=== PATIENT | female | born 1940 | race Caucasian/White ===

== ENCOUNTER 2017-04-13 05:16 | Day surgery (SDC) | payer OTHER, BC ==
[~2017-04-13] VITALS: Ht 177.8 cm; Wt 77.1 kg
[~2017-04-13 05:16] MED LIST: ADVAIR 500/501 DISK IH; ADVIL200 MG PO; BENTYL10 MG PO; ELIQUIS5 MG PO; FLONASE16 G1 BOTH NARES; HYDROCHLOROTHIA50 MG PO; LOPRESSOR50 MG PO; MICRO-K10 ME2 PO; SPIRIVA1 INHALATI IH; TYLENOL ARTHRI650 MG PO; VENTOLIN HFA18 GM IH; WELCHOL625 MG PO
[2017-04-13 06:13] VITALS: BP 168/88
[2017-04-13 06:23] LABS: INTER. NORMALIZED RATIO 1.1; PROTHROMBIN TIME 11.8 SEC (10.2-12.9)
[2017-04-13 06:26] LABS: PTT 32.8 SEC (25-37)
[2017-04-13] MEDS ORDERED: HYDROCODON-ACE1 EAC7 PO (11:38)
[2017-04-13 12:35] VITALS: BP 142/78
[2017-04-13 13:44] VITALS: BP 150/70
[2017-04-13 14:16] VITALS: BP 176/87
== END 2017-04-13 14:25 | disposition home or self-care (01) ==
LOC: SDC 05:16
PROVIDERS: Surgery
DX: C50.412 Malignant neoplasm of upper-outer quadrant of left female breast (principal); Z17.0 Estrogen receptor positive status [ER+]; I48.91 Unspecified atrial fibrillation; I10 Essential (primary) hypertension; I73.9 Peripheral vascular disease, unspecified; J43.9 Emphysema, unspecified; Z87.891 Personal history of nicotine dependence; Z79.01 Long term (current) use of anticoagulants; Z85.820 Personal history of malignant melanoma of skin
CPT/HCPCS: 78195; 78999; 85610; 85730; 88305; 88307; A9541; J0131; J0690; J1100; J1170; J2250; J2405; J3010; J7120; S0020

== ENCOUNTER 2017-08-18 11:04 | Inpatient (IN) | payer OTHER, BC ==
[~2017-08-18] VITALS: Ht 177.8 cm; Wt 91.4 kg
[~2017-08-18 11:04] MED LIST changes: +HYDROCODON-ACE1 EAC7 PO; -MICRO-K10 ME2 PO; +MICRO-K8 ME2 PO
[2017-08-18 12:24] LABS: PLATELET COUNT 348 K/uL (156-360)
[2017-08-18 12:28] LABS: HEMATOCRIT 31.2 % (36.0-46.0); HEMOGLOBIN 10.7 G/DL (11.9-15.5); MCH 26.7 PG (29.0-34.0); MCHC 34.3 G/DL (30.0-36.0); MCV 77.8 FL (83-99); RBC DIS.WIDTH-CV 15.1 % (11.8-14.6); RBC DIS.WIDTH-SD 42.6 % (39-53); RED BLOOD COUNT 4.01 M/uL (3.80-5.20)
[2017-08-18 12:36] LABS: PTT 29.4 SEC (25-37)
[2017-08-18 12:38] LABS: CHLORIDE 88 mEq/L (99-109); INTER. NORMALIZED RATIO 2.6; SODIUM 122 mEq/L (136-147)
[2017-08-18 12:39] LABS: GLUCOSE 96 mg/dL (70-99)
[2017-08-18 12:43] LABS: CREATININE 1.4 mg/dL (0.6-1.3); GFR ESTIMATE (CALCULATED) 39 mL/min/
[2017-08-18 12:44] LABS: UREA NITROGEN (BUN) 50 mg/dL (9-23); WHITE BLOOD COUNT 34.3 K/uL (4.1-10.2)
[2017-08-18 12:45] LABS: TROP-I INTERPRETATION NEGATIVE; TROPONIN-I < 0.01 ng/mL (0.0-0.30)
[2017-08-18 13:06] LABS: ABS NEUTROPHIL COUNT 33.4; BAND NEUTROPHILS 3.5 % (0-8.0); EOSINOPHIL ABS CT 0.1; EOSINOPHILS 0.4 % (0-5.0); LYMPHOCYTES 0.9 % (15.0-45.0); MONOCYTES 1.3 % (0-9.0); PLAT.SUFFICIENCY ADEQUATE; SEG.NEUTROPHILS 93.9 % (46.0-76.0); SMUDGE CELLS 0.9
[2017-08-18] MEDS ORDERED: PROVENTIL,2.5 MG/3 M IH (15:04)
[2017-08-18] MEDS ORDERED: ZYRTEC10 M3 PO (15:08)
[2017-08-18] MEDS ORDERED: ANASTROZOLE1 MG PO (15:08)
[2017-08-18 20:27] VITALS: BP 122/58
[2017-08-18 22:22] LABS: HEMATOCRIT 28.5 % (36.0-46.0); HEMOGLOBIN 9.5 G/DL (11.9-15.5); MCH 25.7 PG (29.0-34.0); MCHC 33.3 G/DL (30.0-36.0); MCV 77.2 FL (83-99); PLATELET COUNT 346 K/uL (156-360); RBC DIS.WIDTH-CV 15.1 % (11.8-14.6); RED BLOOD COUNT 3.69 M/uL (3.80-5.20); WHITE BLOOD COUNT 27.4 K/uL (4.1-10.2)
[2017-08-18 22:46] LABS: CHLORIDE 91 MEQ/L (99-109); CREATININE 1.4 MG/DL (0.6-1.3); GFR ESTIMATE (CALCULATED) 39 mL/min/; GLUCOSE 93 mg/dL (70-99); POTASSIUM 3.3 MEQ/L (3.7-5.4); SODIUM 122 MEQ/L (136-147); UREA NITROGEN (BUN) 54 mg/dL (9-23)
[2017-08-18 23:02] LABS: ABS NEUTROPHIL COUNT 27.2; BAND NEUTROPHILS 18.8 % (0-8.0); BURR CELLS 3+; EOSINOPHIL ABS CT 0; MONOCYTES 0.9 % (0-9.0); OVALOCYTES 1+; PLAT.SUFFICIENCY ADEQUATE; POIKILOCYTOSIS 2+; SEG.NEUTROPHILS 80.3 % (46.0-76.0)
[2017-08-19] VITALS (11 sets, daily range): BP systolic 92–140; BP diastolic 48–74
[2017-08-19 03:17] LABS: C DIFF TOXIN POSITIVE (NEGATIVE)
[2017-08-19 06:17] LABS: INTER. NORMALIZED RATIO 2.4
[2017-08-19 06:19] LABS: PTT 29.4 SEC (25-37)
[2017-08-19 06:25] LABS: CHLORIDE 93 MEQ/L (99-109); CREATININE 1.4 MG/DL (0.6-1.3); GFR ESTIMATE (CALCULATED) 39 mL/min/; GLUCOSE 114 mg/dL (70-99); POTASSIUM 3.5 MEQ/L (3.7-5.4); SODIUM 125 MEQ/L (136-147); UREA NITROGEN (BUN) 54 mg/dL (9-23)
[2017-08-19 06:41] LABS: IRON 13 MCG/DL (35-150)
[2017-08-19 11:03] LABS: FERRITIN 282 NG/ML (10-291)
[2017-08-19 13:29] LABS: INTER. NORMALIZED RATIO 2.1
[2017-08-20 04:45] VITALS: BP 105/52
[2017-08-20 07:30] VITALS: BP 112/57
[2017-08-20 08:35] LABS: CHLORIDE 95 MEQ/L (99-109); CREATININE 1.3 MG/DL (0.6-1.3); GFR ESTIMATE (CALCULATED) 42 mL/min/; GLUCOSE 154 mg/dL (70-99); POTASSIUM 3.5 MEQ/L (3.7-5.4); SODIUM 124 MEQ/L (136-147); UREA NITROGEN (BUN) 50 mg/dL (9-23)
[2017-08-20 08:37] LABS: HEMATOCRIT 27.8 % (36.0-46.0); HEMOGLOBIN 9.2 G/DL (11.9-15.5); MCH 25.8 PG (29.0-34.0); MCHC 33.1 G/DL (30.0-36.0); MCV 77.9 FL (83-99); PLATELET COUNT 256 K/uL (156-360); RBC DIS.WIDTH-CV 15.4 % (11.8-14.6); RBC DIS.WIDTH-SD 42.9 % (39-53); RED BLOOD COUNT 3.57 M/uL (3.80-5.20); WHITE BLOOD COUNT 9.1 K/uL (4.1-10.2)
[2017-08-20 08:42] LABS: ABS NEUTROPHIL COUNT 8.6; BAND NEUTROPHILS 12.2 % (0-8.0); EOSINOPHIL ABS CT 0; LYMPHOCYTES 3.5 % (15.0-45.0); MONOCYTES 1.7 % (0-9.0); PLAT.SUFFICIENCY ADEQUATE; SEG.NEUTROPHILS 82.6 % (46.0-76.0); SMUDGE CELLS 1.7
[2017-08-20 11:52] VITALS: BP 90/55
[2017-08-20 16:53] VITALS: BP 110/65
[2017-08-20 19:45] VITALS: BP 124/61
[2017-08-21 04:45] VITALS: BP 120/63
[2017-08-21 05:24] LABS: HEMATOCRIT 28.4 % (36.0-46.0); HEMOGLOBIN 9.2 G/DL (11.9-15.5); MCH 25.1 PG (29.0-34.0); MCHC 32.4 G/DL (30.0-36.0); MCV 77.4 FL (83-99); PLATELET COUNT 274 K/uL (156-360); RBC DIS.WIDTH-CV 15.5 % (11.8-14.6); RBC DIS.WIDTH-SD 43.4 % (39-53); RED BLOOD COUNT 3.67 M/uL (3.80-5.20); WHITE BLOOD COUNT 6.8 K/uL (4.1-10.2)
[2017-08-21 05:40] LABS: INTER. NORMALIZED RATIO 1.5
[2017-08-21 05:47] LABS: CHLORIDE 98 MEQ/L (99-109); CREATININE 1.1 MG/DL (0.6-1.3); GFR ESTIMATE (CALCULATED) 51 mL/min/; GLUCOSE 120 mg/dL (70-99); POTASSIUM 3.5 MEQ/L (3.7-5.4); SODIUM 130 MEQ/L (136-147); UREA NITROGEN (BUN) 39 mg/dL (9-23)
[2017-08-21 06:08] LABS: BASOPHIL (%) 0.3 % (0-1); EOSINOPHIL (%) 1.5 % (0-5); EOSINOPHIL COUNT 0.1 K/uL (0-0.3); HEMATOLOGY COMMENT 1 SN; IMMATURE GRANULOCYTE (%) 2.2 % (0.0-0.7); LYMPHOCYTE (%) 5.9 % (15-42); LYMPHOCYTE COUNT 0.4 K/uL (1.0-2.8); MONOCYTE (%) 5.3 % (3-12); MONOCYTE COUNT 0.4 K/uL (0-0.8); NEUTROPHIL (%) 84.8 % (45-76); NEUTROPHIL COUNT 5.8 K/uL (1.8-6.4)
[2017-08-21 07:30] VITALS: BP 123/53
[2017-08-21 11:49] VITALS: BP 105/56
[2017-08-21 17:04] VITALS: BP 120/65
[2017-08-21 19:29] VITALS: BP 134/77
[2017-08-22 00:18] VITALS: BP 128/69
[2017-08-22 03:59] VITALS: BP 110/68
[2017-08-22 05:38] LABS: HEMATOCRIT 28.4 % (36.0-46.0); HEMOGLOBIN 9.2 G/DL (11.9-15.5); MCH 25.3 PG (29.0-34.0); MCHC 32.4 G/DL (30.0-36.0); PLATELET COUNT 284 K/uL (156-360); RBC DIS.WIDTH-CV 15.5 % (11.8-14.6); RBC DIS.WIDTH-SD 43.9 % (39-53); RED BLOOD COUNT 3.64 M/uL (3.80-5.20); WHITE BLOOD COUNT 5.9 K/uL (4.1-10.2)
[2017-08-22 06:04] LABS: ALKALINE PHOSPHATASE 59 IU/L (3-129); ALT (GPT) 8 IU/L (3-49); AST (GOT) 8 IU/L (2-34); CHLORIDE 98 MEQ/L (99-109); CREATININE 0.9 MG/DL (0.6-1.3); GFR ESTIMATE (CALCULATED) > 59 mL/min/; GLUCOSE 111 mg/dL (70-99); MAGNESIUM 1.5 mg/dl (1.3-2.7); PHOSPHORUS 3.4 mg/dL (2.5-4.9); POTASSIUM 3.5 MEQ/L (3.7-5.4); PREALBUMIN 5.2 mg/dL (10-40); SODIUM 133 MEQ/L (136-147); TOTAL BILIRUBIN 0.4 MG/DL (0.0-1.0); TOTAL PROTEIN 4.1 G/DL (6.4-8.3); UREA NITROGEN (BUN) 30 mg/dL (9-23)
[2017-08-22 07:15] VITALS: BP 120/60
[2017-08-22 15:43] VITALS: BP 130/64
[2017-08-22 20:12] VITALS: BP 133/68
[2017-08-22 23:20] VITALS: BP 142/60
[2017-08-23 03:03] VITALS: BP 149/65
[2017-08-23 08:00] VITALS: BP 112/60
[2017-08-23 16:00] VITALS: BP 125/58
[2017-08-23 23:54] VITALS: BP 128/65
[2017-08-24 03:24] VITALS: BP 137/70
[2017-08-24 06:29] LABS: HEMATOCRIT 27.1 % (36.0-46.0); HEMOGLOBIN 8.6 G/DL (11.9-15.5); MCH 25.5 PG (29.0-34.0); MCHC 31.7 G/DL (30.0-36.0); MCV 80.4 FL (83-99); PLATELET COUNT 278 K/uL (156-360); RBC DIS.WIDTH-CV 15.8 % (11.8-14.6); RBC DIS.WIDTH-SD 45.7 % (39-53); RED BLOOD COUNT 3.37 M/uL (3.80-5.20)
[2017-08-24 06:49] LABS: CHLORIDE 100 MEQ/L (99-109); CREATININE 0.9 MG/DL (0.6-1.3); GFR ESTIMATE (CALCULATED) > 59 mL/min/; GLUCOSE 101 mg/dL (70-99); POTASSIUM 3.8 MEQ/L (3.7-5.4); SODIUM 129 MEQ/L (136-147); UREA NITROGEN (BUN) 18 mg/dL (9-23)
[2017-08-24 07:12] LABS: BAND NEUTROPHILS 3.4 % (0-8.0); BASOPHILS 0.9 %; EOSINOPHIL ABS CT 0.2; EOSINOPHILS 3.5 % (0-5.0); LYMPHOCYTES 17.2 % (15.0-45.0); MONOCYTES 9.5 % (0-9.0); MYELOCYTES 1.7 %; PLAT.SUFFICIENCY ADEQUATE; SEG.NEUTROPHILS 63.8 % (46.0-76.0)
[2017-08-24 08:00] VITALS: BP 124/68
[2017-08-24 16:02] VITALS: BP 128/58
[2017-08-24 20:40] VITALS: BP 110/60
[2017-08-25 00:35] VITALS: BP 110/55
[2017-08-25 04:21] VITALS: BP 105/60
[2017-08-25 07:30] VITALS: BP 138/62
[2017-08-25 11:21] VITALS: BP 132/68
[2017-08-25 13:07] LABS: HEMATOCRIT 29.2 % (36.0-46.0); HEMOGLOBIN 9.3 G/DL (11.9-15.5); MCH 25.7 PG (29.0-34.0); MCHC 31.8 G/DL (30.0-36.0); MCV 80.7 FL (83-99); PLATELET COUNT 308 K/uL (156-360); RBC DIS.WIDTH-CV 16.1 % (11.8-14.6); RBC DIS.WIDTH-SD 46.5 % (39-53); RED BLOOD COUNT 3.62 M/uL (3.80-5.20); WHITE BLOOD COUNT 6.1 K/uL (4.1-10.2)
[2017-08-25 13:30] LABS: CREATININE 0.8 MG/DL (0.6-1.3); GFR ESTIMATE (CALCULATED) > 59 mL/min/
[2017-08-25 13:32] LABS: ABS NEUTROPHIL COUNT 4.8; BAND NEUTROPHILS 0.9 % (0-8.0); BASOPHILS 1.8 %; EOSINOPHIL ABS CT 0.2; EOSINOPHILS 2.6 % (0-5.0); LYMPHOCYTES 11.5 % (15.0-45.0); METAMYELOCYTES 0.9 %; MONOCYTES 1.8 % (0-9.0); MYELOCYTES 3.5 %; PLAT.SUFFICIENCY ADEQUATE
[2017-08-25 15:20] VITALS: BP 136/72
[2017-08-25 20:28] VITALS: BP 131/68
[2017-08-26] VITALS: BP 125/72
[2017-08-26 04:05] VITALS: BP 124/66
[2017-08-26 06:32] LABS: CHLORIDE 102 MEQ/L (99-109); CREATININE 0.7 MG/DL (0.6-1.3); GFR ESTIMATE (CALCULATED) > 59 mL/min/; GLUCOSE 110 mg/dL (70-99); POTASSIUM 4.2 MEQ/L (3.7-5.4); SODIUM 131 MEQ/L (136-147); UREA NITROGEN (BUN) 16 mg/dL (9-23)
[2017-08-26 07:53] VITALS: BP 138/64
[2017-08-26 19:40] VITALS: BP 130/81
[2017-08-26 23:00] VITALS: BP 129/80
[2017-08-27 04:52] VITALS: BP 130/83
[2017-08-27 08:00] VITALS: BP 132/67
[2017-08-27 16:00] VITALS: BP 159/84
[2017-08-27 19:10] VITALS: BP 144/67
[2017-08-27 22:55] VITALS: BP 128/60
[2017-08-28 04:03] VITALS: BP 134/49
[2017-08-28 08:00] VITALS: BP 145/69
[2017-08-28 12:00] VITALS: BP 124/64
[2017-08-28 20:04] VITALS: BP 148/67
[2017-08-28 23:40] VITALS: BP 120/54
[2017-08-29] VITALS (12 sets, daily range): BP systolic 120–147; BP diastolic 55–87
[2017-08-29 06:46] LABS: BASOPHIL (%) 0.8 % (0-1); BASOPHIL COUNT 0.1 K/uL (0-0.1); EOSINOPHIL (%) 3.4 % (0-5); EOSINOPHIL COUNT 0.2 K/uL (0-0.3); HEMATOCRIT 25.9 % (36.0-46.0); HEMOGLOBIN 8.4 G/DL (11.9-15.5); IMMATURE GRANULOCYTE (%) 3.8 % (0.0-0.7); LYMPHOCYTE (%) 19.4 % (15-42); LYMPHOCYTE COUNT 1.2 K/uL (1.0-2.8); MCH 25.8 PG (29.0-34.0); MCHC 32.4 G/DL (30.0-36.0); MCV 79.7 FL (83-99); MONOCYTE (%) 7.4 % (3-12); MONOCYTE COUNT 0.5 K/uL (0-0.8); NEUTROPHIL (%) 65.2 % (45-76); NEUTROPHIL COUNT 4.2 K/uL (1.8-6.4); RBC DIS.WIDTH-CV 16.9 % (11.8-14.6); RBC DIS.WIDTH-SD 48.7 % (39-53); RED BLOOD COUNT 3.25 M/uL (3.80-5.20); WHITE BLOOD COUNT 6.4 K/uL (4.1-10.2)
[2017-08-29 07:13] LABS: CHLORIDE 98 MEQ/L (99-109); CREATININE 0.7 MG/DL (0.6-1.3); GFR ESTIMATE (CALCULATED) > 59 mL/min/; GLUCOSE 93 mg/dL (70-99); POTASSIUM 4.3 MEQ/L (3.7-5.4); SODIUM 130 MEQ/L (136-147); UREA NITROGEN (BUN) 18 mg/dL (9-23)
[2017-08-29 07:43] LABS: PLATELET COUNT 410 K/uL (156-360)
[2017-08-30 00:06] VITALS: BP 122/65
[2017-08-30 03:15] VITALS: BP 144/67
[2017-08-30 03:31] LABS: HEMATOCRIT 31.3 % (36.0-46.0)
[2017-08-30 03:39] LABS: HEMOGLOBIN 10.7 G/DL (11.9-15.5)
[2017-08-30 08:46] VITALS: BP 112/69
[2017-08-30 11:27] VITALS: BP 137/69
[2017-08-30 15:54] VITALS: BP 143/80
[2017-08-30 17:58] LABS: HEMATOCRIT 35.2 % (36.0-46.0); HEMOGLOBIN 11.2 G/DL (11.9-15.5); MCV 80.7 FL (83-99)
[2017-08-30 20:08] VITALS: BP 149/74
[2017-08-31 00:01] VITALS: BP 152/68
[2017-08-31 03:32] VITALS: BP 142/62
[2017-08-31 08:11] VITALS: BP 145/70
[2017-08-31 09:07] LABS: HEMATOCRIT 35.9 % (36.0-46.0); HEMOGLOBIN 11.7 G/DL (11.9-15.5)
[2017-08-31 11:46] VITALS: BP 146/66
[2017-08-31 15:56] VITALS: BP 150/70
[2017-08-31 19:40] VITALS: BP 140/78
[2017-08-31 20:19] LABS: HEMATOCRIT 34.4 % (36.0-46.0); HEMOGLOBIN 11.2 G/DL (11.9-15.5); MCV 81.3 FL (83-99)
[2017-09-01 00:06] VITALS: BP 151/82
[2017-09-01 07:43] LABS: HEMATOCRIT 32.9 % (36.0-46.0); HEMOGLOBIN 10.7 G/DL (11.9-15.5); MCV 82.5 FL (83-99)
[2017-09-01 08:00] VITALS: BP 178/78
[2017-09-01 20:02] VITALS: BP 161/83
[2017-09-01 20:13] LABS: HEMATOCRIT 33.6 % (36.0-46.0); HEMOGLOBIN 10.9 G/DL (11.9-15.5); MCV 81.6 FL (83-99)
[2017-09-01 23:45] VITALS: BP 152/69
[2017-09-02 03:05] VITALS: BP 147/82
[2017-09-02 07:31] VITALS: BP 149/76
[2017-09-02 08:42] LABS: HEMATOCRIT 35.6 % (36.0-46.0); HEMOGLOBIN 11.3 G/DL (11.9-15.5)
[2017-09-02 14:41] VITALS: BP 155/91
[2017-09-02 19:56] LABS: HEMATOCRIT 36.4 % (36.0-46.0); HEMOGLOBIN 11.6 G/DL (11.9-15.5); MCV 81.1 FL (83-99)
[2017-09-03] VITALS (7 sets, daily range): BP systolic 133–165; BP diastolic 60–99
[2017-09-03 08:48] LABS: HEMATOCRIT 34.1 % (36.0-46.0); HEMOGLOBIN 10.8 G/DL (11.9-15.5)
[2017-09-03 20:14] LABS: HEMATOCRIT 33.4 % (36.0-46.0); HEMOGLOBIN 10.7 G/DL (11.9-15.5); MCV 82.9 FL (83-99)
[2017-09-04 08:13] VITALS: BP 180/79
[2017-09-04 08:16] VITALS: BP 179/72
[2017-09-04 08:33] LABS: HEMATOCRIT 35.7 % (36.0-46.0); HEMOGLOBIN 11.3 G/DL (11.9-15.5); MCV 82.6 FL (83-99)
[2017-09-04 12:00] VITALS: BP 139/61
[2017-09-04 12:40] LABS: MCHC 30.9 G/DL (30.0-36.0); RBC DIS.WIDTH-CV 17.6 % (11.8-14.6); RBC DIS.WIDTH-SD 53.7 % (39-53); WHITE BLOOD COUNT 7.7 K/uL (4.1-10.2)
[2017-09-04 12:58] LABS: PLATELET COUNT 593 K/uL (156-360)
[2017-09-04 16:00] VITALS: BP 170/84
[2017-09-04 16:57] VITALS: BP 175/83
[2017-09-04 20:15] VITALS: BP 134/69
[2017-09-05 00:35] VITALS: BP 167/77
[2017-09-05 04:28] VITALS: BP 140/66
[2017-09-05 08:20] VITALS: BP 143/69
[2017-09-05 11:06] LABS: CHLORIDE 93 MEQ/L (99-109); CREATININE 0.8 MG/DL (0.6-1.3); GFR ESTIMATE (CALCULATED) > 59 mL/min/; GLUCOSE 131 mg/dL (70-99); SODIUM 132 MEQ/L (136-147); UREA NITROGEN (BUN) 22 mg/dL (9-23)
[2017-09-05 11:49] VITALS: BP 140/67
[2017-09-05 16:00] VITALS: BP 138/68
[2017-09-06] VITALS (7 sets, daily range): BP systolic 132–166; BP diastolic 67–82
[2017-09-06 09:43] LABS: C DIFF TOXIN NEGATIVE (NEGATIVE)
[2017-09-07 03:25] VITALS: BP 138/68
[2017-09-07 08:00] VITALS: BP 144/70
[2017-09-07 12:01] VITALS: BP 136/69
[2017-09-07] MEDS ORDERED: ACETAMINOPHEN-1 EAC1 PO (12:58)
[2017-09-07] MEDS ORDERED: LOVENOX40 MG/0.4 SC (12:58)
[2017-09-07] MEDS ORDERED: DIFLUCAN100 MG PO (13:06)
[2017-09-07] MEDS ORDERED: LEVAQUIN750 MG PO (13:06)
[2017-09-07 15:15] VITALS: BP 154/88
== END 2017-09-07 17:13 | DRG 371 ==
LOC: EME 11:04 → 2EAST 16:24 → EDOF 16:24 → 4EAST 16:24 → ENRESERV 16:32 → 2EAST 19:09 → ENRESERV 08-19 11:03 → 4EAST 08-19 15:28 → ENRESERV 08-21 17:02 → 2EAST 08-21 21:44
PROVIDERS: Emergency Medicine; Internal Medicine; Physician Assistant; Radiology Diagnostic Radiology; Surgery
PROC: 0W9G30Z Drainage of Peritoneal Cavity with Drainage Device, Percutaneous Approach (ICD-10-PCS; principal; 2017-08-19)
PROC: 30233K1 Transfusion of Nonautologous Frozen Plasma into Peripheral Vein, Percutaneous Approach (ICD-10-PCS; 2017-08-19)
PROC: 30233N1 Transfusion of Nonautologous Red Blood Cells into Peripheral Vein, Percutaneous Approach (ICD-10-PCS; 2017-08-29)
PROC: 0W9G3ZZ Drainage of Peritoneal Cavity, Percutaneous Approach (ICD-10-PCS; 2017-09-02)
PROC: 0W9G30Z Drainage of Peritoneal Cavity with Drainage Device, Percutaneous Approach (ICD-10-PCS; 2017-09-05)
DX: K65.1 Peritoneal abscess (principal); K63.1 Perforation of intestine (nontraumatic); A04.72 Enterocolitis due to Clostridium difficile, not specified as recurrent; B95.62 Methicillin resistant Staphylococcus aureus infection as the cause of diseases classified elsewhere; E87.1 Hypo-osmolality and hyponatremia; K92.1 Melena; R79.1 Abnormal coagulation profile; T45.515A Adverse effect of anticoagulants, initial encounter; R33.9 Retention of urine, unspecified; B96.5 Pseudomonas (aeruginosa) (mallei) (pseudomallei) as the cause of diseases classified elsewhere; B37.9 Candidiasis, unspecified; D64.9 Anemia, unspecified; E78.5 Hyperlipidemia, unspecified; F41.9 Anxiety disorder, unspecified; I10 Essential (primary) hypertension; I48.2 Chronic atrial fibrillation; J43.9 Emphysema, unspecified; J45.909 Unspecified asthma, uncomplicated; K64.9 Unspecified hemorrhoids; Z79.01 Long term (current) use of anticoagulants; Z85.3 Personal history of malignant neoplasm of breast; Z85.820 Personal history of malignant melanoma of skin; Z87.891 Personal history of nicotine dependence; Z88.1 Allergy status to other antibiotic agents
CPT/HCPCS: 49406; 71045; 72192; 72193; 74176; 74177; 80048; 80048 91; 80053; 80202; 82040; 82565; 82728; 83540; 83735; 84100; 84134; 84484; 85014; 85018; 85025; 85025 91; 85027; 85610; 85730; 86850; 86900; 86901; 86920; 87040; 87070; 87075; 87076; 87077; 87086; 87106; 87107; 87147; 87185; 87186; 87205; 87493; 93005; 93306; 94640; 94640 76; 94660; 94760; 94799; 97530 GO; 97530 GP; 99202; 99281; 99285; C1769; J0295; J1450; J1650; J1940; J1956; J2270; J2405; J2543; J3010; J3370; J3430; J7030; J7040; J7050; J7509; P9016; P9017; S0030

== ENCOUNTER → 2017-09-29 | Outpatient (CLI) | payer OTHER, BC ==
[~2017-09-29] MED LIST changes: +ACETAMINOPHEN-1 EAC1 PO; +ANASTROZOLE1 MG PO; +DIFLUCAN100 MG PO; +LEVAQUIN750 MG PO; +LOVENOX40 MG/0.4 SC; +PROVENTIL,2.5 MG/3 M IH; +ZYRTEC10 M3 PO
== END | disposition home or self-care (01) ==
LOC: RAD 10:00
DX: R19.09 Other intra-abdominal and pelvic swelling, mass and lump (principal)
CPT/HCPCS: 72193

== ENCOUNTER 2017-10-09 18:59 | Inpatient (IN) | payer OTHER, BC ==
[~2017-10-09] VITALS: Ht 177.8 cm; Wt 76.1 kg
[2017-10-09 19:39] LABS: BASOPHIL (%) 0.2 % (0-1); EOSINOPHIL (%) 0.1 % (0-5); HEMATOCRIT 34.9 % (36.0-46.0); HEMOGLOBIN 11.3 G/DL (11.9-15.5); IMMATURE GRANULOCYTE (%) 0.4 % (0.0-0.7); LYMPHOCYTE (%) 7.5 % (15-42); LYMPHOCYTE COUNT 1.3 K/uL (1.0-2.8); MCHC 32.4 G/DL (30.0-36.0); MCV 80.4 FL (83-99); MONOCYTE (%) 6.4 % (3-12); MONOCYTE COUNT 1.1 K/uL (0-0.8); NEUTROPHIL (%) 85.4 % (45-76); NEUTROPHIL COUNT 14.8 K/uL (1.8-6.4); PLATELET COUNT 376 K/uL (156-360); RBC DIS.WIDTH-CV 15.4 % (11.8-14.6); RBC DIS.WIDTH-SD 45.1 % (39-53); RED BLOOD COUNT 4.34 M/uL (3.80-5.20); WHITE BLOOD COUNT 17.4 K/uL (4.1-10.2)
[2017-10-09 19:52] LABS: ALBUMIN 3.3 g/dL (3.2-4.8); CHLORIDE 93 mEq/L (99-109); POTASSIUM 3.5 mEq/L (3.7-5.4); SODIUM 130 mEq/L (136-147)
[2017-10-09 19:55] LABS: GLUCOSE 124 mg/dL (70-99); TOTAL PROTEIN 6.7 g/dL (6.4-8.3)
[2017-10-09 19:57] LABS: TOTAL BILIRUBIN 0.5 mg/dL (0.0-1.0)
[2017-10-09 19:58] LABS: ALKALINE PHOSPHATASE 59 IU/L (3-129); CREATININE 0.9 mg/dL (0.6-1.3); GFR ESTIMATE (CALCULATED) > 59 mL/min/
[2017-10-09 20:00] LABS: AST (GOT) 12 IU/L (2-34); UREA NITROGEN (BUN) 16 mg/dL (9-23)
[2017-10-09 20:01] LABS: ALT (GPT) 8 IU/L (3-49)
[2017-10-09 20:02] LABS: LIPASE 11 U/L (1.0-51.0)
[2017-10-09 20:08] LABS: TROP-I INTERPRETATION NEGATIVE; TROPONIN-I < 0.01 ng/mL (0.0-0.30)
[2017-10-09] MEDS ORDERED: DICYCLOMINE HCL10 MG PO (23:27)
[2017-10-09] MEDS ORDERED: FUROSEMIDE40 MG PO (23:29)
[2017-10-09] MEDS ORDERED: ENOXAPARIN40 MG/0.4 SC (23:30)
[2017-10-09] MEDS ORDERED: METOPROLOL TART25 MG PO (23:31)
[2017-10-09] MEDS ORDERED: INCRUSE ELLI62.5 MCG IH (23:32)
[2017-10-09] MEDS ORDERED: POTASSIUM CHLOR8 ME3 PO (23:34)
[2017-10-09 23:45] LABS: C DIFF TOXIN POSITIVE (NEGATIVE)
[2017-10-09] MEDS ORDERED: LOPRESSOR50 MG PO (23:56)
[2017-10-10 00:55] LABS: APPEARANCE CLEAR ((CLEAR)); BILIRUBIN NEGATIVE; BLOOD NEGATIVE; COLOR YELLOW ((YELLOW)); GLUCOSE (STRIP) NEGATIVE; KETONES 5; LEUKOCYTES SMALL; NITRITE NEGATIVE; PROTEIN (STRIP) 30; SPECIFIC GRAVITY 1.051 (1.000-1.030); UROBILINOGEN 0.2 MG/DL (0.2-1.0)
[2017-10-10 01:01] LABS: BACTERIA RARE /HPF; EPITHELIAL CELLS NONE SEEN /HPF; MUCUS NONE SEEN /LPF; RED BLOOD CELLS 0-5 /HPF (0-5); UCUL ADDED? NO; WHITE BLOOD CELLS 0-5 /HPF (0-5)
[2017-10-10 01:59] VITALS: BP 116/57
[2017-10-10 07:26] VITALS: BP 114/56
[2017-10-10 11:16] VITALS: BP 108/58
[2017-10-10 11:56] LABS: INTER. NORMALIZED RATIO 1.2
[2017-10-10 11:59] LABS: PTT 27.3 SEC (25-37)
[2017-10-10 13:49] LABS: HEMATOCRIT 30.9 % (36.0-46.0); HEMOGLOBIN 9.8 G/DL (11.9-15.5); MCH 25.5 PG (29.0-34.0); MCHC 31.7 G/DL (30.0-36.0); MCV 80.3 FL (83-99); PLATELET COUNT 332 K/uL (156-360); RBC DIS.WIDTH-CV 15.4 % (11.8-14.6); RED BLOOD COUNT 3.85 M/uL (3.80-5.20); WHITE BLOOD COUNT 17.6 K/uL (4.1-10.2)
[2017-10-10 13:50] LABS: INTER. NORMALIZED RATIO 1.3
[2017-10-10 14:11] LABS: BASOPHIL (%) 0.3 % (0-1); BASOPHIL COUNT 0.1 K/uL (0-0.1); EOSINOPHIL (%) 1.9 % (0-5); EOSINOPHIL COUNT 0.3 K/uL (0-0.3); IMMATURE GRANULOCYTE (%) 0.6 % (0.0-0.7); LYMPHOCYTE COUNT 0.9 K/uL (1.0-2.8); MONOCYTE (%) 7.4 % (3-12); MONOCYTE COUNT 1.3 K/uL (0-0.8); NEUTROPHIL (%) 84.8 % (45-76); NEUTROPHIL COUNT 14.9 K/uL (1.8-6.4)
[2017-10-10 14:22] LABS: CHLORIDE 93 MEQ/L (99-109); CREATININE 0.9 MG/DL (0.6-1.3); GFR ESTIMATE (CALCULATED) > 59 mL/min/; GLUCOSE 116 mg/dL (70-99); SODIUM 125 MEQ/L (136-147); UREA NITROGEN (BUN) 13 mg/dL (9-23)
[2017-10-10 20:45] VITALS: BP 112/54
[2017-10-11 00:06] VITALS: BP 103/55
[2017-10-11 03:33] VITALS: BP 115/60
[2017-10-11 06:08] LABS: HEMOGLOBIN 9.4 G/DL (11.9-15.5); MCH 26.3 PG (29.0-34.0); MCHC 32.4 G/DL (30.0-36.0); MCV 81.2 FL (83-99); PLATELET COUNT 304 K/uL (156-360); RBC DIS.WIDTH-CV 15.3 % (11.8-14.6); RBC DIS.WIDTH-SD 45.3 % (39-53); RED BLOOD COUNT 3.57 M/uL (3.80-5.20); WHITE BLOOD COUNT 11.7 K/uL (4.1-10.2)
[2017-10-11 06:13] LABS: CHLORIDE 96 MEQ/L (99-109); GFR ESTIMATE (CALCULATED) 57 mL/min/; GLUCOSE 104 mg/dL (70-99); SODIUM 127 MEQ/L (136-147); UREA NITROGEN (BUN) 13 mg/dL (9-23)
[2017-10-11 06:51] LABS: ABS NEUTROPHIL COUNT 9.9; BAND NEUTROPHILS 21.2 % (0-8.0); EOSINOPHIL ABS CT 0.8; EOSINOPHILS 6.8 % (0-5.0); HYPOCHROMASIA 1+; LYMPHOCYTES 6.8 % (15.0-45.0); MONOCYTES 1.7 % (0-9.0); PLAT.SUFFICIENCY ADEQUATE; SEG.NEUTROPHILS 63.5 % (46.0-76.0)
[2017-10-11 07:49] VITALS: BP 134/62
[2017-10-11 15:50] VITALS: BP 128/66
[2017-10-11 23:00] VITALS: BP 117/62
[2017-10-12 07:15] VITALS: BP 138/68
[2017-10-12 15:09] VITALS: BP 108/62
[2017-10-12 19:43] VITALS: BP 149/70
[2017-10-13 00:48] VITALS: BP 168/77
[2017-10-13 06:45] LABS: HEMATOCRIT 30.9 % (36.0-46.0); HEMOGLOBIN 9.8 G/DL (11.9-15.5); MCH 25.7 PG (29.0-34.0); MCHC 31.7 G/DL (30.0-36.0); MCV 81.1 FL (83-99); PLATELET COUNT 360 K/uL (156-360); RBC DIS.WIDTH-CV 15.4 % (11.8-14.6); RBC DIS.WIDTH-SD 45.6 % (39-53); RED BLOOD COUNT 3.81 M/uL (3.80-5.20); WHITE BLOOD COUNT 5.5 K/uL (4.1-10.2)
[2017-10-13 06:58] LABS: ALBUMIN 2.5 G/DL (3.2-4.8); ALKALINE PHOSPHATASE 38 IU/L (3-129); ALT (GPT) 4 IU/L (3-49); AST (GOT) 8 IU/L (2-34); CHLORIDE 101 MEQ/L (99-109); CREATININE 0.8 MG/DL (0.6-1.3); GFR ESTIMATE (CALCULATED) > 59 mL/min/; GLUCOSE 105 mg/dL (70-99); MAGNESIUM 1.4 mg/dl (1.3-2.7); PHOSPHORUS 2.3 mg/dL (2.5-4.9); POTASSIUM 3.5 MEQ/L (3.7-5.4); PREALBUMIN 10.9 mg/dL (10-40); SODIUM 132 MEQ/L (136-147); TOTAL BILIRUBIN 0.2 MG/DL (0.0-1.0); TOTAL PROTEIN 5.2 G/DL (6.4-8.3); UREA NITROGEN (BUN) 10 mg/dL (9-23)
[2017-10-13 07:10] LABS: ANISOCYTOSIS 1+; BASOPHIL (%) 1.8 % (0-1); BASOPHIL COUNT 0.1 K/uL (0-0.1); EOSINOPHIL (%) 15.5 % (0-5); EOSINOPHIL COUNT 0.9 K/uL (0-0.3); IMMATURE GRANULOCYTE (%) 2.6 % (0.0-0.7); LYMPHOCYTE (%) 27.2 % (15-42); LYMPHOCYTE COUNT 1.5 K/uL (1.0-2.8); MICROCYTOSIS 1+; MONOCYTE (%) 11.5 % (3-12); MONOCYTE COUNT 0.6 K/uL (0-0.8); NEUTROPHIL (%) 41.4 % (45-76); NEUTROPHIL COUNT 2.3 K/uL (1.8-6.4)
[2017-10-13 07:50] VITALS: BP 144/62
[2017-10-13 13:50] VITALS: BP 138/58
[2017-10-13 23:31] VITALS: BP 150/68
[2017-10-14 05:45] VITALS: BP 164/72
[2017-10-14 07:53] VITALS: BP 138/72
[2017-10-14 11:53] VITALS: BP 142/68
[2017-10-14 16:20] VITALS: BP 148/72
[2017-10-15 00:22] VITALS: BP 159/77
[2017-10-15 06:29] LABS: HEMATOCRIT 30.3 % (36.0-46.0); HEMOGLOBIN 9.7 G/DL (11.9-15.5); MCH 25.9 PG (29.0-34.0); PLATELET COUNT 358 K/uL (156-360); RBC DIS.WIDTH-CV 15.8 % (11.8-14.6); RED BLOOD COUNT 3.74 M/uL (3.80-5.20); WHITE BLOOD COUNT 5.8 K/uL (4.1-10.2)
[2017-10-15 08:00] VITALS: BP 148/80
[2017-10-15 10:05] LABS: C DIFF TOXIN ND (NEGATIVE)
[2017-10-15 15:28] VITALS: BP 140/88
[2017-10-15 23:43] VITALS: BP 138/80
[2017-10-16 07:07] LABS: ALBUMIN 2.7 G/DL (3.2-4.8); CHLORIDE 101 MEQ/L (99-109); CREATININE 0.8 MG/DL (0.6-1.3); GFR ESTIMATE (CALCULATED) > 59 mL/min/; GLUCOSE 114 mg/dL (70-99); POTASSIUM 3.8 MEQ/L (3.7-5.4); SODIUM 130 MEQ/L (136-147); UREA NITROGEN (BUN) 9 mg/dL (9-23)
[2017-10-16 07:21] LABS: PHOSPHORUS 3.4 mg/dL (2.5-4.9)
[2017-10-16 07:38] VITALS: BP 182/87
[2017-10-16 16:37] VITALS: BP 170/80
[2017-10-16 23:15] VITALS: BP 148/69
[2017-10-17 03:56] LABS: CHLORIDE 106 mEq/L (99-109); POTASSIUM 3.8 mEq/L (3.7-5.4); SODIUM 133 mEq/L (136-147)
[2017-10-17 03:58] LABS: GLUCOSE 113 mg/dL (70-99)
[2017-10-17 04:02] LABS: CREATININE 0.8 mg/dL (0.6-1.3); GFR ESTIMATE (CALCULATED) > 59 mL/min/
[2017-10-17 04:03] LABS: UREA NITROGEN (BUN) 9 mg/dL (9-23)
[2017-10-17 08:08] VITALS: BP 193/89
[2017-10-17 09:00] VITALS: BP 162/86
[2017-10-17 15:56] VITALS: BP 193/90
[2017-10-17] MEDS ORDERED: FLAGYL500 MG PO (19:13)
[2017-10-17] MEDS ORDERED: ZYVOX600 MG PO (19:13)
[2017-10-18 00:29] VITALS: BP 125/60
[2017-10-18] MEDS ORDERED: ENOXAPARIN40 MG/0.4 SC (12:25)
== END 2017-10-18 14:45 | disposition home health service (06) | DRG 372 ==
LOC: EME 18:59 → EDOF 10-10 00:04 → 2EAST 10-10 00:04 → ENRESERV 10-10 00:10 → 2EAST 10-10 01:45
PROVIDERS: Emergency Medicine; Internal Medicine; Physician Assistant; Radiology Diagnostic Radiology; Surgery
PROC: 0W9G3ZZ Drainage of Peritoneal Cavity, Percutaneous Approach (ICD-10-PCS; principal; 2017-10-10)
PROC: 0W9G30Z Drainage of Peritoneal Cavity with Drainage Device, Percutaneous Approach (ICD-10-PCS; 2017-10-14)
DX: A04.71 Enterocolitis due to Clostridium difficile, recurrent (principal); K57.20 Diverticulitis of large intestine with perforation and abscess without bleeding; B95.62 Methicillin resistant Staphylococcus aureus infection as the cause of diseases classified elsewhere; J44.9 Chronic obstructive pulmonary disease, unspecified; E78.5 Hyperlipidemia, unspecified; I10 Essential (primary) hypertension; I48.2 Chronic atrial fibrillation; J45.901 Unspecified asthma with (acute) exacerbation; Z85.3 Personal history of malignant neoplasm of breast; Z87.891 Personal history of nicotine dependence
CPT/HCPCS: 49406; 74177; 80048; 80053; 80069; 80202; 81003; 83605; 83630; 83690; 83735; 84100; 84134; 84484; 85025; 85027; 85610; 85730; 87040; 87070; 87075; 87077; 87147; 87177; 87186; 87205; 87493; 87506; 93005; 94640; 94640 76; 94760; 94799; 99202; 99281; 99285; C1729; C1769; J1650; J2405; J3010; J3370; J3480; J7040; J7042; J7120; S0030; S0074

== ENCOUNTER → 2017-11-10 | Outpatient (CLI) | payer OTHER, BC ==
[~2017-11-10] VITALS: Ht 177.8 cm; Wt 72.6 kg
[~2017-11-10] MED LIST changes: +DICYCLOMINE HCL10 MG PO; +ENOXAPARIN40 MG/0.4 SC; +FLAGYL500 MG PO; +FUROSEMIDE40 MG PO; +INCRUSE ELLI62.5 MCG IH; +LOPRESSOR100 M1 PO; +METOPROLOL TART25 MG PO; +POTASSIUM CHLOR8 ME3 PO; +PROAIR RESPICL90 MCG IH; +TYLENOL WITH C1 EACH PO; +ZYVOX600 MG PO
[2017-11-10 10:37] LABS: INTER. NORMALIZED RATIO 1.2
[2017-11-10 10:40] LABS: PTT 30.4 SEC (25-37)
== END | disposition home or self-care (01) ==
LOC: AMB 09:35
PROVIDERS: Internal Medicine Gastroenterology
DX: K63.2 Fistula of intestine (principal); K56.699 Other intestinal obstruction unspecified as to partial versus complete obstruction; A04.72 Enterocolitis due to Clostridium difficile, not specified as recurrent; Z53.09 Procedure and treatment not carried out because of other contraindication; N73.9 Female pelvic inflammatory disease, unspecified; I10 Essential (primary) hypertension; E78.5 Hyperlipidemia, unspecified; I48.91 Unspecified atrial fibrillation; J43.9 Emphysema, unspecified; C50.412 Malignant neoplasm of upper-outer quadrant of left female breast; Z17.0 Estrogen receptor positive status [ER+]; Z87.891 Personal history of nicotine dependence
CPT/HCPCS: 85610; 85730; 93005; J2250; J2405

== ENCOUNTER 2017-12-04 21:48 | Inpatient (IN) | payer OTHER, BC ==
[~2017-12-04] VITALS: Ht 177.8 cm; Wt 70.5 kg
[~2017-12-04 21:48] MED LIST changes: +ARIMIDEX1 MG PO; +POTASSIUM CHLOR8 ME2 PO; +SPIRIVA18 MCG IH
[2017-12-05 09:08] VITALS: BP 200/94
[2017-12-05 19:57] VITALS: BP 145/68; BP 175/84
[2017-12-05 20:47] VITALS: BP 145/68
[2017-12-05 23:25] VITALS: BP 138/69
[2017-12-06 03:35] VITALS: BP 114/68
[2017-12-06 06:56] LABS: HEMATOCRIT 41.6 % (36.0-46.0); MCH 24.9 PG (29.0-34.0); MCHC 31.5 G/DL (30.0-36.0); MCV 79.1 FL (83-99); PLATELET COUNT 357 K/uL (156-360); RBC DIS.WIDTH-CV 16.1 % (11.8-14.6); RBC DIS.WIDTH-SD 46.3 % (39-53); WHITE BLOOD COUNT 11.6 K/uL (4.1-10.2)
[2017-12-06 07:08] LABS: HEMOGLOBIN 13.1 G/DL (11.9-15.5); RED BLOOD COUNT 5.26 M/uL (3.80-5.20)
[2017-12-06 07:20] LABS: CHLORIDE 96 MEQ/L (99-109); CREATININE 0.9 MG/DL (0.6-1.3); GFR ESTIMATE (CALCULATED) > 59 mL/min/; GLUCOSE 110 mg/dL (70-99); POTASSIUM 4.5 MEQ/L (3.7-5.4); SODIUM 132 MEQ/L (136-147); UREA NITROGEN (BUN) 14 mg/dL (9-23)
[2017-12-06 08:10] VITALS: BP 184/87
[2017-12-06 11:47] VITALS: BP 180/83
[2017-12-06 15:30] VITALS: BP 197/92
[2017-12-06 19:35] VITALS: BP 176/84
[2017-12-06 23:53] VITALS: BP 165/83
[2017-12-07] VITALS (10 sets, daily range): BP systolic 165–198; BP diastolic 88–122
[2017-12-07 11:06] LABS: HEMATOCRIT 43.9 % (36.0-46.0); MCHC 31.9 G/DL (30.0-36.0); MCV 78.4 FL (83-99); PLATELET COUNT 386 K/uL (156-360); RBC DIS.WIDTH-CV 16.4 % (11.8-14.6); RBC DIS.WIDTH-SD 46.3 % (39-53); WHITE BLOOD COUNT 11.3 K/uL (4.1-10.2)
[2017-12-07 11:11] LABS: INTER. NORMALIZED RATIO 1.4
[2017-12-07 11:32] LABS: CHLORIDE 97 MEQ/L (99-109); CREATININE 0.8 MG/DL (0.6-1.3); GFR ESTIMATE (CALCULATED) > 59 mL/min/; POTASSIUM 3.9 MEQ/L (3.7-5.4); SODIUM 129 MEQ/L (136-147); UREA NITROGEN (BUN) 10 mg/dL (9-23)
[2017-12-07 11:33] LABS: GLUCOSE 280 mg/dL (70-99)
[2017-12-08] VITALS (8 sets, daily range): BP systolic 127–194; BP diastolic 62–119
[2017-12-08 06:13] LABS: BASOPHIL (%) 0.2 % (0-1); EOSINOPHIL (%) 0 % (0-5); HEMATOCRIT 39.4 % (36.0-46.0); HEMOGLOBIN 12.9 G/DL (11.9-15.5); IMMATURE GRANULOCYTE (%) 0.7 % (0.0-0.7); LYMPHOCYTE (%) 10.8 % (15-42); LYMPHOCYTE COUNT 1.1 K/uL (1.0-2.8); MCH 25.2 PG (29.0-34.0); MCHC 32.7 G/DL (30.0-36.0); MONOCYTE (%) 11.1 % (3-12); MONOCYTE COUNT 1.1 K/uL (0-0.8); NEUTROPHIL (%) 77.2 % (45-76); NEUTROPHIL COUNT 7.7 K/uL (1.8-6.4); PLATELET COUNT 371 K/uL (156-360); RBC DIS.WIDTH-CV 16.3 % (11.8-14.6); RBC DIS.WIDTH-SD 45.4 % (39-53); RED BLOOD COUNT 5.12 M/uL (3.80-5.20)
[2017-12-08 06:33] LABS: CHLORIDE 95 MEQ/L (99-109); CREATININE 0.9 MG/DL (0.6-1.3); GFR ESTIMATE (CALCULATED) > 59 mL/min/; GLUCOSE 162 mg/dL (70-99); MAGNESIUM 1.5 mg/dl (1.3-2.7); POTASSIUM 3.4 MEQ/L (3.7-5.4); SODIUM 130 MEQ/L (136-147); UREA NITROGEN (BUN) 11 mg/dL (9-23)
[2017-12-09] VITALS (9 sets, daily range): BP systolic 93–169; BP diastolic 64–110
[2017-12-09 06:32] LABS: BASOPHIL (%) 0.4 % (0-1); BASOPHIL COUNT 0.1 K/uL (0-0.1); EOSINOPHIL (%) 0.1 % (0-5); HEMATOCRIT 50.7 % (36.0-46.0); HEMOGLOBIN 16.6 G/DL (11.9-15.5); IMMATURE GRANULOCYTE (%) 0.6 % (0.0-0.7); LYMPHOCYTE (%) 8.7 % (15-42); LYMPHOCYTE COUNT 1.3 K/uL (1.0-2.8); MCHC 32.7 G/DL (30.0-36.0); MCV 76.2 FL (83-99); MONOCYTE (%) 7.6 % (3-12); MONOCYTE COUNT 1.1 K/uL (0-0.8); NEUTROPHIL (%) 82.6 % (45-76); NEUTROPHIL COUNT 12.3 K/uL (1.8-6.4); PLATELET COUNT 496 K/uL (156-360); RBC DIS.WIDTH-CV 17.8 % (11.8-14.6); RBC DIS.WIDTH-SD 44.6 % (39-53); RED BLOOD COUNT 6.65 M/uL (3.80-5.20); WHITE BLOOD COUNT 14.9 K/uL (4.1-10.2)
[2017-12-09 06:38] LABS: CHLORIDE 97 MEQ/L (99-109); CREATININE 0.9 MG/DL (0.6-1.3); GFR ESTIMATE (CALCULATED) > 59 mL/min/; GLUCOSE 157 mg/dL (70-99); MAGNESIUM 1.5 mg/dl (1.3-2.7); POTASSIUM 3.6 MEQ/L (3.7-5.4); SODIUM 129 MEQ/L (136-147); UREA NITROGEN (BUN) 17 mg/dL (9-23)
[2017-12-10] VITALS (25 sets, daily range): BP systolic 74–235; BP diastolic 47–222
[2017-12-10 00:43] LABS: pH 7.39 (7.35-7.45)
[2017-12-10 00:44] LABS: BASE EXCESS -6.7 mEq/L (-3 to +3); BICARBONATE 16.3 mEq/L (22-26); CARBOXY HGB 1.9 % (0-5); METHEMOGLOBIN 1.2 % (0-1.5); PCO2 27 mm Hg (35-45); PO2 51 mm Hg (80-100)
[2017-12-10 00:45] LABS: COMMENTS - BLOOD GASES C+A+; DEVICE NCH; O2 FLOW 15 L/MIN; SITE RR
[2017-12-10 01:12] LABS: BASOPHIL (%) 0.3 % (0-1); BASOPHIL COUNT 0.1 K/uL (0-0.1); EOSINOPHIL (%) 0 % (0-5); HEMOGLOBIN 17.8 G/DL (11.9-15.5); IMMATURE GRANULOCYTE (%) 0.5 % (0.0-0.7); LYMPHOCYTE (%) 4.6 % (15-42); LYMPHOCYTE COUNT 1.1 K/uL (1.0-2.8); MCH 25.1 PG (29.0-34.0); MCHC 32.4 G/DL (30.0-36.0); MCV 77.7 FL (83-99); MONOCYTE (%) 3.3 % (3-12); MONOCYTE COUNT 0.8 K/uL (0-0.8); NEUTROPHIL (%) 91.3 % (45-76); NEUTROPHIL COUNT 21.3 K/uL (1.8-6.4); PLATELET COUNT 526 K/uL (156-360); RBC DIS.WIDTH-CV 18.5 % (11.8-14.6); RBC DIS.WIDTH-SD 46.5 % (39-53); RED BLOOD COUNT 7.08 M/uL (3.80-5.20); WHITE BLOOD COUNT 23.3 K/uL (4.1-10.2)
[2017-12-10 01:18] LABS: ALBUMIN 3.2 g/dL (3.2-4.8); CHLORIDE 95 mEq/L (99-109)
[2017-12-10 01:19] LABS: SODIUM 128 mEq/L (136-147)
[2017-12-10 01:21] LABS: GLUCOSE 209 mg/dL (70-99); TOTAL PROTEIN 6.2 g/dL (6.4-8.3)
[2017-12-10 01:23] LABS: TOTAL BILIRUBIN 0.5 mg/dL (0.0-1.0)
[2017-12-10 01:24] LABS: ALKALINE PHOSPHATASE 84 IU/L (3-129); GFR ESTIMATE (CALCULATED) 36 mL/min/
[2017-12-10 01:25] LABS: UREA NITROGEN (BUN) 23 mg/dL (9-23)
[2017-12-10 01:26] LABS: AST (GOT) 41 IU/L (2-34)
[2017-12-10 01:27] LABS: ALT (GPT) 34 IU/L (3-49)
[2017-12-10 01:31] LABS: CREATININE 1.5 mg/dL (0.6-1.3); TROP-I INTERPRETATION NEGATIVE; TROPONIN-I 0.05 ng/mL (0.0-0.30)
[2017-12-10 02:26] LABS: COMMENTS - BLOOD GASES C; DEVICE VENT; FI02 100 %; MECHANICAL RATE 20 resp/min; MODE AC; PEEP 8 CM/H20; SITE RF; TIDAL VOLUME 450 ML; TOTAL RESP RATE 26 resp/min
[2017-12-10 02:27] LABS: BASE EXCESS -8.7 mEq/L (-3 to +3); CARBOXY HGB 1.7 % (0-5); METHEMOGLOBIN 1.1 % (0-1.5); O2 SATURATION (CALCULATED) 90.8 % (95-99); PCO2 31 mm Hg (35-45); PO2 65 mm Hg (80-100); pH 7.32 (7.35-7.45)
[2017-12-10 04:45] LABS: CHLORIDE 101 mEq/L (99-109); POTASSIUM 3.8 mEq/L (3.7-5.4); SODIUM 130 mEq/L (136-147)
[2017-12-10 04:46] LABS: MAGNESIUM 1.2 mg/dL (1.3-2.7)
[2017-12-10 04:48] LABS: GLUCOSE 102 mg/dL (70-99)
[2017-12-10 04:51] LABS: CREATININE 1.1 mg/dL (0.6-1.3); GFR ESTIMATE (CALCULATED) 51 mL/min/
[2017-12-10 04:52] LABS: UREA NITROGEN (BUN) 23 mg/dL (9-23)
[2017-12-10 04:57] LABS: HEMATOCRIT 47.3 % (36.0-46.0); HEMOGLOBIN 15.5 G/DL (11.9-15.5); MCH 25.2 PG (29.0-34.0); MCHC 32.8 G/DL (30.0-36.0); PLATELET COUNT 445 K/uL (156-360); RBC DIS.WIDTH-CV 17.7 % (11.8-14.6); RBC DIS.WIDTH-SD 45.8 % (39-53); RED BLOOD COUNT 6.14 M/uL (3.80-5.20); WHITE BLOOD COUNT 26.7 K/uL (4.1-10.2)
[2017-12-10 05:47] LABS: ABS NEUTROPHIL COUNT 25.5; BAND NEUTROPHILS 6.3 % (0-8.0); BASOPHILS 0.4 %; BURR CELLS 2+; EOSINOPHIL ABS CT 0; LYMPHOCYTES 0.4 % (15.0-45.0); METAMYELOCYTES 0.4 %; MONOCYTES 3.4 % (0-9.0); PLATELET CLUMPS PRESENT - PLATELET COUNT APPEARS ADQ.; POIKILOCYTOSIS 3+; SEG.NEUTROPHILS 89.1 % (46.0-76.0); SMUDGE CELLS 5.5; TOX.VACUOLIZATION 1+
[2017-12-10 10:01] LABS: COMMENTS - BLOOD GASES C+; DEVICE 980; FI02 100 %; MECHANICAL RATE 20 resp/min; MODE AC; PCO2 29 mm Hg (35-45); PEEP 8 CM/H20; PO2 181 mm Hg (80-100); SITE ALINE; TIDAL VOLUME 450 ML; TOTAL RESP RATE 20 resp/min; pH 7.37 (7.35-7.45)
[2017-12-10 10:02] LABS: BICARBONATE 16.8 mEq/L (22-26); CARBOXY HGB 1.3 % (0-5); METHEMOGLOBIN 1.3 % (0-1.5)
[2017-12-10 10:51] LABS: PTT 39.5 SEC (25-37)
[2017-12-10 10:52] LABS: INTER. NORMALIZED RATIO 3.8
[2017-12-10 13:25] LABS: UR CREATININE CONCENTRATION 243.8 MG/DL
[2017-12-10 16:45] LABS: INTER. NORMALIZED RATIO 1.6
[2017-12-10 16:56] LABS: HEMATOCRIT 32.9 % (36.0-46.0); MCH 24.7 PG (29.0-34.0); MCHC 32.2 G/DL (30.0-36.0); MCV 76.7 FL (83-99); PLAT.SUFFICIENCY ADEQUATE; RBC DIS.WIDTH-CV 16.3 % (11.8-14.6); RBC DIS.WIDTH-SD 44.9 % (39-53); WHITE BLOOD COUNT 11.7 K/uL (4.1-10.2)
[2017-12-10 16:57] LABS: HEMOGLOBIN 10.6 G/DL (11.9-15.5); PLATELET COUNT 236 K/uL (156-360); RED BLOOD COUNT 4.29 M/uL (3.80-5.20)
[2017-12-10 17:19] LABS: ALBUMIN 2.1 G/DL (3.2-4.8); ALKALINE PHOSPHATASE 38 IU/L (3-129); ALT (GPT) 12 IU/L (3-49); AST (GOT) 13 IU/L (2-34); CHLORIDE 102 MEQ/L (99-109); CREATININE 1.1 MG/DL (0.6-1.3); GFR ESTIMATE (CALCULATED) 51 mL/min/; GLUCOSE 130 mg/dL (70-99); PHOSPHORUS 4.2 mg/dL (2.5-4.9); POTASSIUM 3.5 MEQ/L (3.7-5.4); SODIUM 129 MEQ/L (136-147); TOTAL BILIRUBIN 0.6 MG/DL (0.0-1.0); UREA NITROGEN (BUN) 23 mg/dL (9-23)
[2017-12-10 17:34] LABS: MAGNESIUM 1.2 mg/dl (1.3-2.7)
[2017-12-11] VITALS (21 sets, daily range): BP systolic 97–179; BP diastolic 43–93
[2017-12-11 06:18] LABS: HEMATOCRIT 29.9 % (36.0-46.0); HEMOGLOBIN 9.5 G/DL (11.9-15.5); MCH 24.7 PG (29.0-34.0); MCHC 31.8 G/DL (30.0-36.0); MCV 77.7 FL (83-99); PLATELET COUNT 212 K/uL (156-360); RBC DIS.WIDTH-CV 16.7 % (11.8-14.6); RED BLOOD COUNT 3.85 M/uL (3.80-5.20); WHITE BLOOD COUNT 10.8 K/uL (4.1-10.2)
[2017-12-11 06:36] LABS: ALBUMIN 1.8 G/DL (3.2-4.8); ALKALINE PHOSPHATASE 35 IU/L (3-129); ALT (GPT) 9 IU/L (3-49); AST (GOT) 11 IU/L (2-34); CHLORIDE 102 MEQ/L (99-109); CREATININE 1.1 MG/DL (0.6-1.3); DIRECT BILIRUBIN 0.1 mg/dL (0.0-0.3); GFR ESTIMATE (CALCULATED) 51 mL/min/; GLUCOSE 121 mg/dL (70-99); PHOSPHORUS 3.7 mg/dL (2.5-4.9); PREALBUMIN 8.7 mg/dL (10-40); SODIUM 132 MEQ/L (136-147); TOTAL PROTEIN 3.7 G/DL (6.4-8.3); TRIGLYCERIDES 67 MG/DL (Normal: <150); UREA NITROGEN (BUN) 31 mg/dL (9-23)
[2017-12-11 06:37] LABS: MAGNESIUM 1.5 mg/dl (1.3-2.7); TOTAL BILIRUBIN 0.4 MG/DL (0.0-1.0)
[2017-12-11 06:57] LABS: ABS NEUTROPHIL COUNT 9.8; ANISOCYTOSIS 2+; BAND NEUTROPHILS 16.5 % (0-8.0); BURR CELLS 3+; EOSINOPHIL ABS CT 0.2; EOSINOPHILS 1.7 % (0-5.0); LYMPHOCYTES 3.5 % (15.0-45.0); MONOCYTES 4.4 % (0-9.0); PLAT.SUFFICIENCY ADEQUATE; POIKILOCYTOSIS 3+; POLYCHROMASIA 1+; SEG.NEUTROPHILS 73.9 % (46.0-76.0)
[2017-12-11 15:29] LABS: CHLORIDE 104 MEQ/L (99-109); CREATININE 0.9 MG/DL (0.6-1.3); GFR ESTIMATE (CALCULATED) > 59 mL/min/; GLUCOSE 114 mg/dL (70-99); POTASSIUM 3.7 MEQ/L (3.7-5.4); SODIUM 134 MEQ/L (136-147); UREA NITROGEN (BUN) 36 mg/dL (9-23)
[2017-12-12] VITALS (24 sets, daily range): BP systolic 133–187; BP diastolic 63–115
[2017-12-12 06:28] LABS: CHLORIDE 105 MEQ/L (99-109); CREATININE 0.9 MG/DL (0.6-1.3); GFR ESTIMATE (CALCULATED) > 59 mL/min/; GLUCOSE 132 mg/dL (70-99); PHOSPHORUS 2.9 mg/dL (2.5-4.9); POTASSIUM 3.2 MEQ/L (3.7-5.4); SODIUM 138 MEQ/L (136-147); UREA NITROGEN (BUN) 37 mg/dL (9-23)
[2017-12-12 06:29] LABS: BASOPHIL (%) 0.1 % (0-1); EOSINOPHIL (%) 1.2 % (0-5); EOSINOPHIL COUNT 0.2 K/uL (0-0.3); HEMATOCRIT 24.6 % (36.0-46.0); HEMOGLOBIN 8.3 G/DL (11.9-15.5); IMMATURE GRANULOCYTE (%) 0.6 % (0.0-0.7); LYMPHOCYTE (%) 4.8 % (15-42); LYMPHOCYTE COUNT 0.7 K/uL (1.0-2.8); MCH 25.2 PG (29.0-34.0); MCHC 33.7 G/DL (30.0-36.0); MCV 74.8 FL (83-99); MONOCYTE (%) 3.9 % (3-12); MONOCYTE COUNT 0.6 K/uL (0-0.8); NEUTROPHIL (%) 89.4 % (45-76); NEUTROPHIL COUNT 12.6 K/uL (1.8-6.4); PLATELET COUNT 249 K/uL (156-360); RBC DIS.WIDTH-CV 16.8 % (11.8-14.6); RBC DIS.WIDTH-SD 45.5 % (39-53); RED BLOOD COUNT 3.29 M/uL (3.80-5.20); WHITE BLOOD COUNT 14.1 K/uL (4.1-10.2)
[2017-12-12 06:36] LABS: MAGNESIUM 1.9 mg/dl (1.3-2.7)
[2017-12-12 14:33] LABS: HIGH-SENS C-REACTIVE PROTEIN > 8.00 MG/DL (0.02-0.20)
[2017-12-12 20:33] LABS: BASOPHIL (%) 0.1 % (0-1); EOSINOPHIL (%) 1.4 % (0-5); EOSINOPHIL COUNT 0.2 K/uL (0-0.3); HEMATOCRIT 28.8 % (36.0-46.0); HEMOGLOBIN 9.8 G/DL (11.9-15.5); IMMATURE GRANULOCYTE (%) 0.7 % (0.0-0.7); LYMPHOCYTE (%) 4.2 % (15-42); LYMPHOCYTE COUNT 0.7 K/uL (1.0-2.8); MCH 25.5 PG (29.0-34.0); MCV 74.8 FL (83-99); MONOCYTE (%) 4.8 % (3-12); MONOCYTE COUNT 0.8 K/uL (0-0.8); NEUTROPHIL (%) 88.8 % (45-76); NEUTROPHIL COUNT 15.5 K/uL (1.8-6.4); PLATELET COUNT 285 K/uL (156-360); RBC DIS.WIDTH-CV 16.9 % (11.8-14.6); RED BLOOD COUNT 3.85 M/uL (3.80-5.20); WHITE BLOOD COUNT 17.5 K/uL (4.1-10.2)
[2017-12-13] VITALS (26 sets, daily range): BP systolic 137–190; BP diastolic 63–105
[2017-12-13 05:42] LABS: CHLORIDE 108 MEQ/L (99-109); CREATININE 0.8 MG/DL (0.6-1.3); GFR ESTIMATE (CALCULATED) > 59 mL/min/; GLUCOSE 134 mg/dL (70-99); MAGNESIUM 1.9 mg/dl (1.3-2.7); PHOSPHORUS 3.4 mg/dL (2.5-4.9); POTASSIUM 3.2 MEQ/L (3.7-5.4); SODIUM 144 MEQ/L (136-147); UREA NITROGEN (BUN) 35 mg/dL (9-23)
[2017-12-13 10:50] LABS: BASOPHIL (%) 0.2 % (0-1); EOSINOPHIL COUNT 0.2 K/uL (0-0.3); HEMATOCRIT 27.4 % (36.0-46.0); HEMOGLOBIN 9.4 G/DL (11.9-15.5); IMMATURE GRANULOCYTE (%) 1.1 % (0.0-0.7); LYMPHOCYTE COUNT 0.8 K/uL (1.0-2.8); MCHC 34.3 G/DL (30.0-36.0); MCV 75.7 FL (83-99); MONOCYTE (%) 5.8 % (3-12); MONOCYTE COUNT 1.1 K/uL (0-0.8); NEUTROPHIL (%) 87.9 % (45-76); NEUTROPHIL COUNT 16.7 K/uL (1.8-6.4); PLATELET COUNT 286 K/uL (156-360); RBC DIS.WIDTH-CV 17.1 % (11.8-14.6); RBC DIS.WIDTH-SD 45.7 % (39-53); RED BLOOD COUNT 3.62 M/uL (3.80-5.20)
[2017-12-13 10:59] LABS: 24 HR VOLUME 6600 MLS; URINE UREA NITROGEN 20394 MG/24 HR
[2017-12-14] VITALS (22 sets, daily range): BP systolic 116–163; BP diastolic 52–94
[2017-12-14 06:06] LABS: CHLORIDE 115 MEQ/L (99-109); CREATININE 0.8 MG/DL (0.6-1.3); GFR ESTIMATE (CALCULATED) > 59 mL/min/; GLUCOSE 141 mg/dL (70-99); MAGNESIUM 2.1 mg/dl (1.3-2.7); PHOSPHORUS 3.2 mg/dL (2.5-4.9); SODIUM 148 MEQ/L (136-147); UREA NITROGEN (BUN) 37 mg/dL (9-23)
[2017-12-14 08:26] LABS: HEMOGLOBIN 8.5 G/DL (11.9-15.5); MCH 25.5 PG (29.0-34.0); MCHC 32.7 G/DL (30.0-36.0); MCV 78.1 FL (83-99); PLATELET COUNT 307 K/uL (156-360); RBC DIS.WIDTH-CV 17.8 % (11.8-14.6); RBC DIS.WIDTH-SD 50.4 % (39-53); RED BLOOD COUNT 3.33 M/uL (3.80-5.20); WHITE BLOOD COUNT 19.7 K/uL (4.1-10.2)
[2017-12-15] VITALS (20 sets, daily range): BP systolic 135–177; BP diastolic 63–91
[2017-12-15 05:57] LABS: CHLORIDE 118 MEQ/L (99-109); CREATININE 0.9 MG/DL (0.6-1.3); GFR ESTIMATE (CALCULATED) > 59 mL/min/; GLUCOSE 162 mg/dL (70-99); MAGNESIUM 2.2 mg/dl (1.3-2.7); PHOSPHORUS 2.6 mg/dL (2.5-4.9); POTASSIUM 4.6 MEQ/L (3.7-5.4); SODIUM 149 MEQ/L (136-147); UREA NITROGEN (BUN) 41 mg/dL (9-23)
[2017-12-15 08:34] LABS: HEMATOCRIT 28.5 % (36.0-46.0); MCH 24.9 PG (29.0-34.0); MCHC 31.6 G/DL (30.0-36.0); MCV 78.9 FL (83-99); PLATELET COUNT 358 K/uL (156-360); RBC DIS.WIDTH-CV 18.5 % (11.8-14.6); RBC DIS.WIDTH-SD 52.3 % (39-53); RED BLOOD COUNT 3.61 M/uL (3.80-5.20); WHITE BLOOD COUNT 25.9 K/uL (4.1-10.2)
[2017-12-15 13:19] LABS: HIGH-SENS C-REACTIVE PROTEIN > 8.00 MG/DL (0.02-0.20)
[2017-12-16] VITALS (25 sets, daily range): BP systolic 129–182; BP diastolic 53–112
[2017-12-16 05:05] LABS: BASOPHIL (%) 0.3 % (0-1); BASOPHIL COUNT 0.1 K/uL (0-0.1); EOSINOPHIL (%) 2.1 % (0-5); EOSINOPHIL COUNT 0.5 K/uL (0-0.3); HEMATOCRIT 28.9 % (36.0-46.0); HEMOGLOBIN 9.4 G/DL (11.9-15.5); IMMATURE GRANULOCYTE (%) 3.9 % (0.0-0.7); LYMPHOCYTE (%) 7.4 % (15-42); LYMPHOCYTE COUNT 1.6 K/uL (1.0-2.8); MCH 25.3 PG (29.0-34.0); MCHC 32.5 G/DL (30.0-36.0); MCV 77.9 FL (83-99); MONOCYTE (%) 7.1 % (3-12); MONOCYTE COUNT 1.6 K/uL (0-0.8); NEUTROPHIL (%) 79.2 % (45-76); NEUTROPHIL COUNT 17.2 K/uL (1.8-6.4); PLATELET COUNT 385 K/uL (156-360); RBC DIS.WIDTH-CV 18.8 % (11.8-14.6); RBC DIS.WIDTH-SD 52.8 % (39-53); RED BLOOD COUNT 3.71 M/uL (3.80-5.20); WHITE BLOOD COUNT 21.8 K/uL (4.1-10.2)
[2017-12-16 05:18] LABS: POTASSIUM 4.5 mEq/L (3.7-5.4); SODIUM 150 mEq/L (136-147)
[2017-12-16 05:20] LABS: CHLORIDE 117 mEq/L (99-109); GLUCOSE 146 mg/dL (70-99); MAGNESIUM 2.1 mg/dL (1.3-2.7)
[2017-12-16 05:24] LABS: GFR ESTIMATE (CALCULATED) 57 mL/min/; PHOSPHORUS 3.3 mg/dL (2.5-4.9)
[2017-12-16 05:25] LABS: UREA NITROGEN (BUN) 50 mg/dL (9-23)
[2017-12-17] VITALS (25 sets, daily range): BP systolic 126–178; BP diastolic 53–106
[2017-12-17 06:07] LABS: CHLORIDE 115 MEQ/L (99-109); CREATININE 0.9 MG/DL (0.6-1.3); GFR ESTIMATE (CALCULATED) > 59 mL/min/; GLUCOSE 149 mg/dL (70-99); MAGNESIUM 2.2 mg/dl (1.3-2.7); POTASSIUM 4.8 MEQ/L (3.7-5.4); SODIUM 148 MEQ/L (136-147); UREA NITROGEN (BUN) 51 mg/dL (9-23); VANCOMYCIN, TROUGH 14.4 MCG/ML (10-20)
[2017-12-17 06:08] LABS: PHOSPHORUS 3.8 mg/dL (2.5-4.9)
[2017-12-17 08:15] LABS: BASOPHIL (%) 0.3 % (0-1); BASOPHIL COUNT 0.1 K/uL (0-0.1); EOSINOPHIL (%) 2.7 % (0-5); EOSINOPHIL COUNT 0.5 K/uL (0-0.3); HEMATOCRIT 27.4 % (36.0-46.0); HEMOGLOBIN 8.8 G/DL (11.9-15.5); LYMPHOCYTE (%) 9.3 % (15-42); LYMPHOCYTE COUNT 1.6 K/uL (1.0-2.8); MCH 25.2 PG (29.0-34.0); MCHC 32.1 G/DL (30.0-36.0); MCV 78.5 FL (83-99); MONOCYTE (%) 7.1 % (3-12); MONOCYTE COUNT 1.2 K/uL (0-0.8); NEUTROPHIL (%) 77.6 % (45-76); NEUTROPHIL COUNT 13.4 K/uL (1.8-6.4); PLATELET COUNT 398 K/uL (156-360); RBC DIS.WIDTH-CV 19.2 % (11.8-14.6); RBC DIS.WIDTH-SD 54.2 % (39-53); RED BLOOD COUNT 3.49 M/uL (3.80-5.20); WHITE BLOOD COUNT 17.2 K/uL (4.1-10.2)
[2017-12-17 14:42] LABS: INTER. NORMALIZED RATIO 1.3
[2017-12-17 14:44] LABS: PTT 34.4 SEC (25-37)
[2017-12-18] VITALS (24 sets, daily range): BP systolic 135–1145; BP diastolic 66–881
[2017-12-18 03:09] LABS: CHLORIDE 111 mEq/L (99-109); POTASSIUM 4.7 mEq/L (3.7-5.4); SODIUM 142 mEq/L (136-147)
[2017-12-18 03:11] LABS: GLUCOSE 122 mg/dL (70-99)
[2017-12-18 03:15] LABS: CREATININE 0.8 mg/dL (0.6-1.3); GFR ESTIMATE (CALCULATED) > 59 mL/min/; PHOSPHORUS 3.7 mg/dL (2.5-4.9)
[2017-12-18 03:16] LABS: UREA NITROGEN (BUN) 55 mg/dL (9-23)
[2017-12-18 05:46] LABS: BASOPHIL (%) 0.5 % (0-1); BASOPHIL COUNT 0.1 K/uL (0-0.1); EOSINOPHIL (%) 1.7 % (0-5); EOSINOPHIL COUNT 0.3 K/uL (0-0.3); HEMATOCRIT 30.8 % (36.0-46.0); HEMOGLOBIN 9.9 G/DL (11.9-15.5); IMMATURE GRANULOCYTE (%) 2.9 % (0.0-0.7); LYMPHOCYTE COUNT 2.1 K/uL (1.0-2.8); MCH 24.8 PG (29.0-34.0); MCHC 32.1 G/DL (30.0-36.0); MONOCYTE (%) 4.8 % (3-12); MONOCYTE COUNT 0.9 K/uL (0-0.8); NEUTROPHIL (%) 79.1 % (45-76); NEUTROPHIL COUNT 14.8 K/uL (1.8-6.4); PLATELET COUNT 470 K/uL (156-360); RBC DIS.WIDTH-SD 52.2 % (39-53); WHITE BLOOD COUNT 18.8 K/uL (4.1-10.2)
[2017-12-18 09:24] LABS: INTER. NORMALIZED RATIO 1.2
[2017-12-18 09:27] LABS: PTT 45.6 SEC (25-37)
[2017-12-19] VITALS (18 sets, daily range): BP systolic 116–176; BP diastolic 61–97
[2017-12-19 06:15] LABS: BASOPHIL (%) 0.4 % (0-1); BASOPHIL COUNT 0.1 K/uL (0-0.1); EOSINOPHIL (%) 1.4 % (0-5); EOSINOPHIL COUNT 0.2 K/uL (0-0.3); HEMATOCRIT 29.8 % (36.0-46.0); HEMOGLOBIN 9.6 G/DL (11.9-15.5); IMMATURE GRANULOCYTE (%) 1.8 % (0.0-0.7); LYMPHOCYTE (%) 8.5 % (15-42); LYMPHOCYTE COUNT 1.5 K/uL (1.0-2.8); MCH 24.4 PG (29.0-34.0); MCHC 32.2 G/DL (30.0-36.0); MCV 75.8 FL (83-99); MONOCYTE (%) 4.9 % (3-12); MONOCYTE COUNT 0.9 K/uL (0-0.8); NEUTROPHIL COUNT 14.6 K/uL (1.8-6.4); PLATELET COUNT 510 K/uL (156-360); RBC DIS.WIDTH-CV 18.7 % (11.8-14.6); RBC DIS.WIDTH-SD 51.6 % (39-53); RED BLOOD COUNT 3.93 M/uL (3.80-5.20); WHITE BLOOD COUNT 17.6 K/uL (4.1-10.2)
[2017-12-19 06:18] LABS: INTER. NORMALIZED RATIO 1.2
[2017-12-19 06:44] LABS: ALBUMIN 2.3 G/DL (3.2-4.8); ALKALINE PHOSPHATASE 162 IU/L (3-129); ALT (GPT) 8 IU/L (3-49); AST (GOT) 13 IU/L (2-34); CHLORIDE 108 MEQ/L (99-109); CREATININE 0.8 MG/DL (0.6-1.3); DIRECT BILIRUBIN 0.2 mg/dL (0.0-0.3); GFR ESTIMATE (CALCULATED) > 59 mL/min/; GLUCOSE 174 mg/dL (70-99); PHOSPHORUS 3.5 mg/dL (2.5-4.9); POTASSIUM 3.9 MEQ/L (3.7-5.4); PREALBUMIN 14.4 mg/dL (10-40); SODIUM 146 MEQ/L (136-147); TOTAL BILIRUBIN 0.5 MG/DL (0.0-1.0); TOTAL PROTEIN 5.2 G/DL (6.4-8.3); TRIGLYCERIDES 134 MG/DL (Normal: <150); UREA NITROGEN (BUN) 65 mg/dL (9-23)
[2017-12-19 12:57] LABS: INTER. NORMALIZED RATIO 1.2
[2017-12-19 13:00] LABS: PTT 61.4 SEC (25-37)
[2017-12-20] VITALS (22 sets, daily range): BP systolic 101–150; BP diastolic 46–84
[2017-12-20 04:31] LABS: BASOPHIL (%) 0.6 % (0-1); BASOPHIL COUNT 0.1 K/uL (0-0.1); EOSINOPHIL COUNT 0.4 K/uL (0-0.3); HEMATOCRIT 28.2 % (36.0-46.0); HEMOGLOBIN 9.5 G/DL (11.9-15.5); IMMATURE GRANULOCYTE (%) 1.7 % (0.0-0.7); LYMPHOCYTE (%) 9.2 % (15-42); LYMPHOCYTE COUNT 1.7 K/uL (1.0-2.8); MCH 25.7 PG (29.0-34.0); MCHC 33.7 G/DL (30.0-36.0); MCV 76.4 FL (83-99); MONOCYTE (%) 5.7 % (3-12); NEUTROPHIL (%) 80.8 % (45-76); NEUTROPHIL COUNT 14.7 K/uL (1.8-6.4); PLATELET COUNT 479 K/uL (156-360); RBC DIS.WIDTH-CV 19.1 % (11.8-14.6); RBC DIS.WIDTH-SD 52.1 % (39-53); RED BLOOD COUNT 3.69 M/uL (3.80-5.20); WHITE BLOOD COUNT 18.1 K/uL (4.1-10.2)
[2017-12-20 05:09] LABS: CHLORIDE 107 mEq/L (99-109); POTASSIUM 3.5 mEq/L (3.7-5.4); SODIUM 147 mEq/L (136-147)
[2017-12-20 05:10] LABS: MAGNESIUM 1.8 mg/dL (1.3-2.7)
[2017-12-20 05:11] LABS: GLUCOSE 136 mg/dL (70-99)
[2017-12-20 05:15] LABS: CREATININE 0.9 mg/dL (0.6-1.3); GFR ESTIMATE (CALCULATED) > 59 mL/min/; PHOSPHORUS 3.8 mg/dL (2.5-4.9)
[2017-12-20 05:16] LABS: UREA NITROGEN (BUN) 66 mg/dL (9-23)
[2017-12-20 10:12] LABS: INTER. NORMALIZED RATIO 1.2
[2017-12-20 10:15] LABS: PTT 74.4 SEC (25-37)
[2017-12-20 11:50] LABS: COMMENTS - BLOOD GASES A+C+; DEVICE VM; FI02 50 %; O2 FLOW 12 L/MIN; SITE RR
[2017-12-20 11:51] LABS: BASE EXCESS 4.2 mEq/L (-3 to +3); BICARBONATE 28.4 mEq/L (22-26); CARBOXY HGB 1.9 % (0-5); METHEMOGLOBIN 0.9 % (0-1.5); PCO2 40 mm Hg (35-45); PO2 83 mm Hg (80-100); TOTAL RESP RATE 28 resp/min; pH 7.46 (7.35-7.45)
[2017-12-21] VITALS (21 sets, daily range): BP systolic 83–160; BP diastolic 37–83
[2017-12-21 06:21] LABS: BASOPHIL (%) 0.5 % (0-1); BASOPHIL COUNT 0.1 K/uL (0-0.1); EOSINOPHIL (%) 2.3 % (0-5); EOSINOPHIL COUNT 0.4 K/uL (0-0.3); HEMATOCRIT 25.5 % (36.0-46.0); HEMOGLOBIN 8.2 G/DL (11.9-15.5); IMMATURE GRANULOCYTE (%) 1.4 % (0.0-0.7); LYMPHOCYTE (%) 8.7 % (15-42); LYMPHOCYTE COUNT 1.3 K/uL (1.0-2.8); MCH 24.8 PG (29.0-34.0); MCHC 32.2 G/DL (30.0-36.0); MCV 77.3 FL (83-99); MONOCYTE COUNT 0.9 K/uL (0-0.8); NEUTROPHIL (%) 81.1 % (45-76); NEUTROPHIL COUNT 12.4 K/uL (1.8-6.4); PLATELET COUNT 490 K/uL (156-360); RBC DIS.WIDTH-CV 19.3 % (11.8-14.6); RBC DIS.WIDTH-SD 53.5 % (39-53); WHITE BLOOD COUNT 15.3 K/uL (4.1-10.2)
[2017-12-21 06:33] LABS: INTER. NORMALIZED RATIO 1.2
[2017-12-21 06:36] LABS: PTT 59.3 SEC (25-37)
[2017-12-21 06:59] LABS: CHLORIDE 112 MEQ/L (99-109); CREATININE 0.9 MG/DL (0.6-1.3); GFR ESTIMATE (CALCULATED) > 59 mL/min/; GLUCOSE 124 mg/dL (70-99); MAGNESIUM 2.2 mg/dl (1.3-2.7); PHOSPHORUS 3.2 mg/dL (2.5-4.9); SODIUM 148 MEQ/L (136-147); UREA NITROGEN (BUN) 53 mg/dL (9-23)
[2017-12-21 21:11] LABS: C DIFF TOXIN NEGATIVE (NEGATIVE)
[2017-12-22] VITALS (18 sets, daily range): BP systolic 108–154; BP diastolic 46–96
[2017-12-22 05:42] LABS: HEMATOCRIT 27.9 % (36.0-46.0); HEMOGLOBIN 8.9 G/DL (11.9-15.5); MCH 24.8 PG (29.0-34.0); MCHC 31.9 G/DL (30.0-36.0); MCV 77.7 FL (83-99); PLATELET COUNT 523 K/uL (156-360); RBC DIS.WIDTH-CV 20.1 % (11.8-14.6); RBC DIS.WIDTH-SD 54.1 % (39-53); RED BLOOD COUNT 3.59 M/uL (3.80-5.20); WHITE BLOOD COUNT 11.2 K/uL (4.1-10.2)
[2017-12-22 05:51] LABS: INTER. NORMALIZED RATIO 1.2
[2017-12-22 05:52] LABS: BASOPHIL (%) 0.6 % (0-1); BASOPHIL COUNT 0.1 K/uL (0-0.1); EOSINOPHIL (%) 2.6 % (0-5); EOSINOPHIL COUNT 0.3 K/uL (0-0.3); IMMATURE GRANULOCYTE (%) 1.3 % (0.0-0.7); LYMPHOCYTE (%) 11.9 % (15-42); LYMPHOCYTE COUNT 1.3 K/uL (1.0-2.8); MONOCYTE (%) 5.9 % (3-12); MONOCYTE COUNT 0.7 K/uL (0-0.8); NEUTROPHIL (%) 77.7 % (45-76); NEUTROPHIL COUNT 8.7 K/uL (1.8-6.4)
[2017-12-22 06:43] LABS: CHLORIDE 110 MEQ/L (99-109); GFR ESTIMATE (CALCULATED) 57 mL/min/; GLUCOSE 136 mg/dL (70-99); PHOSPHORUS 3.1 mg/dL (2.5-4.9); POTASSIUM 3.7 MEQ/L (3.7-5.4); SODIUM 146 MEQ/L (136-147); UREA NITROGEN (BUN) 42 mg/dL (9-23)
[2017-12-23] VITALS (7 sets, daily range): BP systolic 104–170; BP diastolic 52–87
[2017-12-23 06:25] LABS: BASOPHIL COUNT 0.1 K/uL (0-0.1); EOSINOPHIL (%) 4.7 % (0-5); EOSINOPHIL COUNT 0.4 K/uL (0-0.3); HEMATOCRIT 25.8 % (36.0-46.0); HEMOGLOBIN 8.1 G/DL (11.9-15.5); IMMATURE GRANULOCYTE (%) 0.8 % (0.0-0.7); LYMPHOCYTE (%) 14.3 % (15-42); LYMPHOCYTE COUNT 1.3 K/uL (1.0-2.8); MCH 24.8 PG (29.0-34.0); MCHC 31.4 G/DL (30.0-36.0); MCV 79.1 FL (83-99); MONOCYTE (%) 6.7 % (3-12); MONOCYTE COUNT 0.6 K/uL (0-0.8); NEUTROPHIL (%) 72.5 % (45-76); NEUTROPHIL COUNT 6.4 K/uL (1.8-6.4); PLATELET COUNT 508 K/uL (156-360); RBC DIS.WIDTH-CV 20.6 % (11.8-14.6); RBC DIS.WIDTH-SD 56.8 % (39-53); RED BLOOD COUNT 3.26 M/uL (3.80-5.20); WHITE BLOOD COUNT 8.8 K/uL (4.1-10.2)
[2017-12-23 06:34] LABS: INTER. NORMALIZED RATIO 1.2
[2017-12-23 06:37] LABS: PTT 52.9 SEC (25-37)
[2017-12-23 07:02] LABS: CHLORIDE 111 MEQ/L (99-109); MAGNESIUM 1.9 mg/dl (1.3-2.7); POTASSIUM 3.9 MEQ/L (3.7-5.4); SODIUM 146 MEQ/L (136-147)
[2017-12-23 07:07] LABS: CREATININE 1.1 MG/DL (0.6-1.3); GFR ESTIMATE (CALCULATED) 51 mL/min/; GLUCOSE 134 mg/dL (70-99); PHOSPHORUS 3.8 mg/dL (2.5-4.9); UREA NITROGEN (BUN) 42 mg/dL (9-23)
[2017-12-24 03:28] VITALS: BP 166/73
[2017-12-24 06:39] LABS: BASOPHIL (%) 0.6 % (0-1); BASOPHIL COUNT 0.1 K/uL (0-0.1); EOSINOPHIL COUNT 0.3 K/uL (0-0.3); HEMATOCRIT 25.3 % (36.0-46.0); IMMATURE GRANULOCYTE (%) 0.8 % (0.0-0.7); LYMPHOCYTE (%) 17.1 % (15-42); LYMPHOCYTE COUNT 1.4 K/uL (1.0-2.8); MCH 25.1 PG (29.0-34.0); MCHC 31.6 G/DL (30.0-36.0); MCV 79.3 FL (83-99); MONOCYTE (%) 7.4 % (3-12); MONOCYTE COUNT 0.6 K/uL (0-0.8); NEUTROPHIL (%) 70.1 % (45-76); NEUTROPHIL COUNT 5.6 K/uL (1.8-6.4); PLATELET COUNT 570 K/uL (156-360); RBC DIS.WIDTH-CV 21.2 % (11.8-14.6); RBC DIS.WIDTH-SD 57.6 % (39-53); RED BLOOD COUNT 3.19 M/uL (3.80-5.20)
[2017-12-24 08:24] LABS: CHLORIDE 111 MEQ/L (99-109); CREATININE 1.1 MG/DL (0.6-1.3); GFR ESTIMATE (CALCULATED) 51 mL/min/; GLUCOSE 127 mg/dL (70-99); MAGNESIUM 1.9 mg/dl (1.3-2.7); PHOSPHORUS 3.4 mg/dL (2.5-4.9); POTASSIUM 3.8 MEQ/L (3.7-5.4); SODIUM 147 MEQ/L (136-147); UREA NITROGEN (BUN) 42 mg/dL (9-23)
[2017-12-24 08:40] VITALS: BP 127/66
[2017-12-24 11:30] VITALS: BP 145/69
[2017-12-24 16:01] VITALS: BP 112/71
[2017-12-24 19:00] VITALS: BP 142/61
[2017-12-24 23:24] VITALS: BP 106/52
[2017-12-25 02:35] VITALS: BP 105/54
[2017-12-25 08:30] VITALS: BP 142/75
[2017-12-25 12:22] VITALS: BP 131/66
[2017-12-25 16:11] VITALS: BP 159/67
[2017-12-25 19:10] VITALS: BP 161/78
[2017-12-25 23:28] VITALS: BP 85/54
[2017-12-26 03:00] VITALS: BP 102/61
[2017-12-26 05:52] LABS: BASOPHIL (%) 0.6 % (0-1); EOSINOPHIL (%) 6.4 % (0-5); EOSINOPHIL COUNT 0.4 K/uL (0-0.3); HEMATOCRIT 24.4 % (36.0-46.0); HEMOGLOBIN 7.7 G/DL (11.9-15.5); IMMATURE GRANULOCYTE (%) 0.9 % (0.0-0.7); LYMPHOCYTE (%) 17.2 % (15-42); LYMPHOCYTE COUNT 1.2 K/uL (1.0-2.8); MCH 25.3 PG (29.0-34.0); MCHC 31.6 G/DL (30.0-36.0); MCV 80.3 FL (83-99); MONOCYTE (%) 8.9 % (3-12); MONOCYTE COUNT 0.6 K/uL (0-0.8); NEUTROPHIL COUNT 4.5 K/uL (1.8-6.4); PLATELET COUNT 517 K/uL (156-360); RBC DIS.WIDTH-CV 22.2 % (11.8-14.6); RBC DIS.WIDTH-SD 61.6 % (39-53); RED BLOOD COUNT 3.04 M/uL (3.80-5.20); WHITE BLOOD COUNT 6.8 K/uL (4.1-10.2)
[2017-12-26 06:41] LABS: IRON 19 MCG/DL (35-150)
[2017-12-26 07:05] VITALS: BP 130/63
[2017-12-26 11:21] VITALS: BP 134/79
[2017-12-26 15:28] VITALS: BP 155/87
[2017-12-26 20:00] VITALS: BP 151/75
[2017-12-26 23:56] VITALS: BP 128/49
[2017-12-27 04:02] VITALS: BP 148/70
[2017-12-27 07:25] VITALS: BP 155/72
[2017-12-27 09:10] LABS: BASOPHIL (%) 0.7 % (0-1); EOSINOPHIL (%) 6.9 % (0-5); EOSINOPHIL COUNT 0.4 K/uL (0-0.3); HEMOGLOBIN 8.5 G/DL (11.9-15.5); IMMATURE GRANULOCYTE (%) 1.8 % (0.0-0.7); LYMPHOCYTE (%) 16.7 % (15-42); LYMPHOCYTE COUNT 0.9 K/uL (1.0-2.8); MCH 25.2 PG (29.0-34.0); MCHC 31.5 G/DL (30.0-36.0); MCV 80.1 FL (83-99); MONOCYTE COUNT 0.5 K/uL (0-0.8); NEUTROPHIL (%) 65.9 % (45-76); NEUTROPHIL COUNT 3.7 K/uL (1.8-6.4); PLATELET COUNT 609 K/uL (156-360); RBC DIS.WIDTH-CV 22.3 % (11.8-14.6); RBC DIS.WIDTH-SD 61.9 % (39-53); RED BLOOD COUNT 3.37 M/uL (3.80-5.20); WHITE BLOOD COUNT 5.6 K/uL (4.1-10.2)
[2017-12-27 09:33] LABS: CHLORIDE 102 MEQ/L (99-109); GFR ESTIMATE (CALCULATED) 57 mL/min/; GLUCOSE 138 mg/dL (70-99); POTASSIUM 4.2 MEQ/L (3.7-5.4); UREA NITROGEN (BUN) 29 mg/dL (9-23)
[2017-12-27 09:34] LABS: SODIUM 136 MEQ/L (136-147)
[2017-12-27 11:57] VITALS: BP 134/76
[2017-12-27 15:28] VITALS: BP 135/73
[2017-12-27 21:20] VITALS: BP 152/76
[2017-12-28 01:00] VITALS: BP 140/80
[2017-12-28 03:30] LABS: APPEARANCE CLEAR ((CLEAR)); BILIRUBIN NEGATIVE; BLOOD NEGATIVE; COLOR YELLOW ((YELLOW)); GLUCOSE (STRIP) NEGATIVE; KETONES NEGATIVE; LEUKOCYTES NEGATIVE; NITRITE NEGATIVE; PROTEIN (STRIP) NEGATIVE; SPECIFIC GRAVITY 1.016 (1.000-1.030); UROBILINOGEN 0.2 MG/DL (0.2-1.0)
[2017-12-28 05:34] LABS: CHLORIDE 102 MEQ/L (99-109); INTER. NORMALIZED RATIO 1.2; POTASSIUM 4.1 MEQ/L (3.7-5.4); SODIUM 134 MEQ/L (136-147)
[2017-12-28 05:37] LABS: PTT 71.5 SEC (25-37)
[2017-12-28 05:40] LABS: CREATININE 0.9 MG/DL (0.6-1.3); GFR ESTIMATE (CALCULATED) > 59 mL/min/; GLUCOSE 152 mg/dL (70-99); UREA NITROGEN (BUN) 28 mg/dL (9-23)
[2017-12-28 05:50] VITALS: BP 110/74
[2017-12-28 05:50] LABS: HEMATOCRIT 24.1 % (36.0-46.0); HEMOGLOBIN 7.7 G/DL (11.9-15.5); MCH 25.8 PG (29.0-34.0); MCV 80.9 FL (83-99); PLATELET COUNT 546 K/uL (156-360); RBC DIS.WIDTH-CV 22.7 % (11.8-14.6); RBC DIS.WIDTH-SD 65.1 % (39-53); RED BLOOD COUNT 2.98 M/uL (3.80-5.20); WHITE BLOOD COUNT 5.7 K/uL (4.1-10.2)
[2017-12-28 05:52] LABS: BASOPHIL (%) 0.7 % (0-1); EOSINOPHIL (%) 7.2 % (0-5); EOSINOPHIL COUNT 0.4 K/uL (0-0.3); IMMATURE GRANULOCYTE (%) 2.1 % (0.0-0.7); LYMPHOCYTE (%) 17.5 % (15-42); MONOCYTE (%) 10.3 % (3-12); MONOCYTE COUNT 0.6 K/uL (0-0.8); NEUTROPHIL (%) 62.2 % (45-76); NEUTROPHIL COUNT 3.6 K/uL (1.8-6.4)
[2017-12-28 09:08] VITALS: BP 132/67
[2017-12-28 11:05] VITALS: BP 134/70
[2017-12-28 16:01] VITALS: BP 158/80
[2017-12-28 19:47] VITALS: BP 139/66
[2017-12-29] VITALS (15 sets, daily range): BP systolic 108–162; BP diastolic 52–88
[2017-12-29 09:46] LABS: BASOPHIL (%) 0.9 % (0-1); EOSINOPHIL (%) 6.2 % (0-5); EOSINOPHIL COUNT 0.3 K/uL (0-0.3); IMMATURE GRANULOCYTE (%) 1.8 % (0.0-0.7); LYMPHOCYTE (%) 22.9 % (15-42); MCH 26.3 PG (29.0-34.0); MCHC 32.2 G/DL (30.0-36.0); MCV 81.6 FL (83-99); MONOCYTE (%) 12.3 % (3-12); MONOCYTE COUNT 0.6 K/uL (0-0.8); NEUTROPHIL (%) 55.9 % (45-76); NEUTROPHIL COUNT 2.6 K/uL (1.8-6.4); PLATELET COUNT 494 K/uL (156-360); RBC DIS.WIDTH-CV 21.3 % (11.8-14.6); RBC DIS.WIDTH-SD 61.6 % (39-53); WHITE BLOOD COUNT 4.6 K/uL (4.1-10.2)
[2017-12-29 09:49] LABS: HEMOGLOBIN 10.3 G/DL (11.9-15.5); RED BLOOD COUNT 3.92 M/uL (3.80-5.20)
[2017-12-29 10:06] LABS: CHLORIDE 100 MEQ/L (99-109); CREATININE 0.9 MG/DL (0.6-1.3); GFR ESTIMATE (CALCULATED) > 59 mL/min/; GLUCOSE 116 mg/dL (70-99); POTASSIUM 4.1 MEQ/L (3.7-5.4); SODIUM 136 MEQ/L (136-147); UREA NITROGEN (BUN) 25 mg/dL (9-23)
[2017-12-30 04:00] VITALS: BP 151/78
[2017-12-30 05:25] LABS: HEMOGLOBIN 9.8 G/DL (11.9-15.5); MCH 25.8 PG (29.0-34.0); MCHC 31.6 G/DL (30.0-36.0); MCV 81.6 FL (83-99); PLATELET COUNT 524 K/uL (156-360); RBC DIS.WIDTH-CV 21.3 % (11.8-14.6); RBC DIS.WIDTH-SD 62.1 % (39-53); WHITE BLOOD COUNT 4.5 K/uL (4.1-10.2)
[2017-12-30 05:48] LABS: CHLORIDE 101 MEQ/L (99-109); CREATININE 0.8 MG/DL (0.6-1.3); GFR ESTIMATE (CALCULATED) > 59 mL/min/; GLUCOSE 158 mg/dL (70-99); POTASSIUM 4.3 MEQ/L (3.7-5.4); SODIUM 137 MEQ/L (136-147); UREA NITROGEN (BUN) 26 mg/dL (9-23)
[2017-12-30 05:54] LABS: BASOPHIL (%) 0.7 % (0-1); EOSINOPHIL (%) 4.9 % (0-5); EOSINOPHIL COUNT 0.2 K/uL (0-0.3); IMMATURE GRANULOCYTE (%) 1.8 % (0.0-0.7); LYMPHOCYTE (%) 21.1 % (15-42); MONOCYTE (%) 14.2 % (3-12); MONOCYTE COUNT 0.6 K/uL (0-0.8); NEUTROPHIL (%) 57.3 % (45-76); NEUTROPHIL COUNT 2.6 K/uL (1.8-6.4)
[2017-12-30 07:36] VITALS: BP 143/68
[2017-12-30 12:10] VITALS: BP 158/81
[2017-12-30 15:50] VITALS: BP 149/74
== END 2017-12-30 18:05 | DRG 329 ==
LOC: ENRESERV 21:48 → 2EAST 12-05 08:41 → 2SOUTH 12-05 08:41 → 4EAST 12-05 08:41 → 2SOUTH 12-05 13:16 → ENRESERV 12-05 16:25 → 2EAST 12-05 19:30 → ENRESERV 12-10 00:48 → 2EAST 12-10 00:52 → 4WEST 12-10 01:01 → ENRESERV 12-22 16:38 → 4EAST 12-22 17:46
PROVIDERS: Emergency Medicine; Hospitalist; Internal Medicine; Internal Medicine Critical Care Medicine; Internal Medicine Pulmonary Disease; Physician Assistant; Physician Assistant Medical; Physician Assistant Surgical; Specialist; Surgery
PROC: 0DTNFZZ Resection of Sigmoid Colon, Via Natural or Artificial Opening With Percutaneous Endoscopic Assistance (ICD-10-PCS; principal; 2017-12-05)
PROC: 0D1B0Z4 Bypass Ileum to Cutaneous, Open Approach (ICD-10-PCS; 2017-12-05)
PROC: 0DJD8ZZ Inspection of Lower Intestinal Tract, Via Natural or Artificial Opening Endoscopic (ICD-10-PCS; 2017-12-05)
PROC: 0DN Gastrointestinal System, Release (ICD-10-PCS; 2017-12-05)
PROC: 30233N1 Transfusion of Nonautologous Red Blood Cells into Peripheral Vein, Percutaneous Approach (ICD-10-PCS; 2017-12-05)
PROC: 30233K1 Transfusion of Nonautologous Frozen Plasma into Peripheral Vein, Percutaneous Approach (ICD-10-PCS; 2017-12-10)
PROC: 02HV33Z Insertion of Infusion Device into Superior Vena Cava, Percutaneous Approach (ICD-10-PCS; 2017-12-10)
PROC: 0BH17EZ Insertion of Endotracheal Airway into Trachea, Via Natural or Artificial Opening (ICD-10-PCS; 2017-12-10)
PROC: 0DNE0ZZ Release Large Intestine, Open Approach (ICD-10-PCS; 2017-12-10)
PROC: 0DBL0ZZ Excision of Transverse Colon, Open Approach (ICD-10-PCS; 2017-12-10)
PROC: 0DBP0ZZ Excision of Rectum, Open Approach (ICD-10-PCS; 2017-12-10)
PROC: 0DBG0ZZ Excision of Left Large Intestine, Open Approach (ICD-10-PCS; 2017-12-10)
PROC: 3E0436Z Introduction of Nutritional Substance into Central Vein, Percutaneous Approach (ICD-10-PCS; 2017-12-10)
PROC: 5A1945Z Respiratory Ventilation, 24-96 Consecutive Hours (ICD-10-PCS; 2017-12-10)
PROC: 0DBU0ZZ Excision of Omentum, Open Approach (ICD-10-PCS; 2017-12-10)
PROC: 0DBN0ZZ Excision of Sigmoid Colon, Open Approach (ICD-10-PCS; 2017-12-10)
PROC: 0DBB0ZZ Excision of Ileum, Open Approach (ICD-10-PCS; 2017-12-10)
PROC: 3E1G78Z Irrigation of Upper GI using Irrigating Substance, Via Natural or Artificial Opening (ICD-10-PCS; 2017-12-10)
PROC: 0DNW0ZZ Release Peritoneum, Open Approach (ICD-10-PCS; 2017-12-10)
PROC: 0D1L0Z4 Bypass Transverse Colon to Cutaneous, Open Approach (ICD-10-PCS; 2017-12-10)
PROC: 0DH63UZ Insertion of Feeding Device into Stomach, Percutaneous Approach (ICD-10-PCS; 2017-12-10)
PROC: 5A09357 Assistance with Respiratory Ventilation, Less than 24 Consecutive Hours, Continuous Positive Airway Pressure (ICD-10-PCS; 2017-12-15)
DX: K57.20 Diverticulitis of large intestine with perforation and abscess without bleeding (principal); A41.9 Sepsis, unspecified organism; J96.01 Acute respiratory failure with hypoxia; R65.21 Severe sepsis with septic shock; K94.19 Other complications of enterostomy; K91.71 Accidental puncture and laceration of a digestive system organ or structure during a digestive system procedure; E87.1 Hypo-osmolality and hyponatremia; Y83.2 Surgical operation with anastomosis, bypass or graft as the cause of abnormal reaction of the patient, or of later complication, without mention of misadventure at the time of the procedure; Y83.3 Surgical operation with formation of external stoma as the cause of abnormal reaction of the patient, or of later complication, without mention of misadventure at the time of the procedure; J98.11 Atelectasis; K56.7 Ileus, unspecified; N17.9 Acute kidney failure, unspecified; E44.0 Moderate protein-calorie malnutrition; D68.4 Acquired coagulation factor deficiency; J90 Pleural effusion, not elsewhere classified; N73.6 Female pelvic peritoneal adhesions (postinfective); N32.89 Other specified disorders of bladder; I48.2 Chronic atrial fibrillation; I10 Essential (primary) hypertension; D50.0 Iron deficiency anemia secondary to blood loss (chronic); E78.5 Hyperlipidemia, unspecified; E86.0 Dehydration; I25.10 Atherosclerotic heart disease of native coronary artery without angina pectoris; J84.10 Pulmonary fibrosis, unspecified; J45.909 Unspecified asthma, uncomplicated; E87.6 Hypokalemia; Z87.891 Personal history of nicotine dependence; Z86.19 Personal history of other infectious and parasitic diseases; Z90.12 Acquired absence of left breast and nipple; Z85.3 Personal history of malignant neoplasm of breast; Z85.820 Personal history of malignant melanoma of skin; Z86.14 Personal history of Methicillin resistant Staphylococcus aureus infection; Y92.234 Operating room of hospital as the place of occurrence of the external cause
CPT/HCPCS: 31720; 36600; 71045; 71046; 71260; 74018; 74176; 74177; 74230; 80048; 80048 91; 80053; 80076; 80202; 81003; 81015; 81050; 82248; 82330; 82436; 82533 91; 82570; 82803; 82948; 83540; 83605; 83735; 83880; 83935; 84100; 84133; 84134; 84145 90; 84300; 84478; 84484; 84540; 84630 90; 85025; 85025 91; 85027; 85610; 85730; 86141; 86850; 86900; 86901; 86920; 87040; 87070; 87075; 87077; 87147; 87186; 87205; 87493; 87641; 88304; 88305; 88307; 92526 GN; 92610 GN; 92611 GN; 94002; 94003; 94640; 94640 76; 94667; 94668; 94760; 94799; 97530 GO; 97530 GP; 99202; A6214; B4087; C1751; J0131; J0330; J0360; J0692; J1100; J1170; J1450; J1630; J1644; J1650; J1815; J1940; J2020; J2248; J2250; J2405; J2543; J2704; J2765; J3010; J3370; J3475; J3480; J7040; J7042; J7050; J7120; P9016; P9017; P9047; Q0175; S0028; S0030; S0074

== ENCOUNTER 2018-02-20 15:32 | Emergency (ER) | payer OTHER, BC ==
[~2018-02-20] VITALS: Ht 177.8 cm; Wt 66.1 kg
[2018-02-20 16:36] LABS: BASOPHIL COUNT 0.1 K/uL (0-0.1); EOSINOPHIL (%) 1.1 % (0-5); EOSINOPHIL COUNT 0.1 K/uL (0-0.3); IMMATURE GRANULOCYTE (%) 0.3 % (0.0-0.7); LYMPHOCYTE (%) 17.6 % (15-42); LYMPHOCYTE COUNT 1.1 K/uL (1.0-2.8); MCH 26.2 PG (29.0-34.0); MCHC 32.3 G/DL (30.0-36.0); MCV 81.3 FL (83-99); MONOCYTE (%) 8.4 % (3-12); MONOCYTE COUNT 0.5 K/uL (0-0.8); NEUTROPHIL (%) 71.6 % (45-76); NEUTROPHIL COUNT 4.5 K/uL (1.8-6.4); PLATELET COUNT 365 K/uL (156-360); RBC DIS.WIDTH-CV 17.7 % (11.8-14.6); RBC DIS.WIDTH-SD 51.6 % (39-53); WHITE BLOOD COUNT 6.3 K/uL (4.1-10.2)
[2018-02-20 16:53] LABS: CHLORIDE 103 mEq/L (99-109); SODIUM 137 mEq/L (136-147)
[2018-02-20 16:56] LABS: GLUCOSE 102 mg/dL (70-99); TOTAL PROTEIN 7.8 g/dL (6.4-8.3)
[2018-02-20 16:57] LABS: TOTAL BILIRUBIN 0.6 mg/dL (0.0-1.0); TROP-I INTERPRETATION NEGATIVE; TROPONIN-I < 0.01 ng/mL (0.0-0.30)
[2018-02-20 16:59] LABS: ALKALINE PHOSPHATASE 56 IU/L (3-129); GFR ESTIMATE (CALCULATED) 57 mL/min/
[2018-02-20 17:00] LABS: UREA NITROGEN (BUN) 16 mg/dL (9-23)
[2018-02-20 17:01] LABS: AST (GOT) 21 IU/L (2-34)
[2018-02-20 17:02] LABS: ALT (GPT) 12 IU/L (3-49)
[2018-02-20 17:06] LABS: HEMOGLOBIN 12.9 G/DL (11.9-15.5); RED BLOOD COUNT 4.92 M/uL (3.80-5.20)
[2018-02-20 17:20] LABS: APPEARANCE CLEAR ((CLEAR)); BILIRUBIN NEGATIVE; BLOOD SMALL; COLOR COLORLESS ((YELLOW)); GLUCOSE (STRIP) NEGATIVE; KETONES 5; LEUKOCYTES NEGATIVE; NITRITE NEGATIVE; PROTEIN (STRIP) 100; SPECIFIC GRAVITY 1.008 (1.000-1.030); UROBILINOGEN 0.2 MG/DL (0.2-1.0)
[2018-02-20 17:21] LABS: BACTERIA RARE /HPF; EPITHELIAL CELLS NONE SEEN /HPF; MUCUS NONE SEEN /LPF; RED BLOOD CELLS 0-5 /HPF (0-5); UCUL ADDED? NO; WHITE BLOOD CELLS 0-5 /HPF (0-5)
[2018-02-20 20:28] VITALS: BP 193/104
== END 2018-02-20 20:30 | disposition home or self-care (01) ==
LOC: EME 15:32
PROVIDERS: Emergency Medicine
DX: I10 Essential (primary) hypertension (principal); I48.91 Unspecified atrial fibrillation; J43.9 Emphysema, unspecified; J45.909 Unspecified asthma, uncomplicated; Z93.3 Colostomy status; Z87.891 Personal history of nicotine dependence
CPT/HCPCS: 70450; 80053; 81003; 84484; 85025; 93005; 99281; 99284